=== PATIENT | male | born 1955 | race Caucasian/White ===

== ENCOUNTER 2021-10-20 16:21 | Inpatient (IN) ==
[2021-10-20] MEDS ORDERED: oxyCODONE/APAP 5/325MG TABLET PO PRN (19:14)
[2021-10-20] MEDS ORDERED: ONDANSETRON 4 MG/2 ML VIAL IV PRN (19:14)
[2021-10-20] MEDS ORDERED: ACETAMINOPHEN 325 MG TABLET PO PRN (19:14)
--- NOTE | 2021-10-20 19:26 | Internal Med History&Physical ---
HPI History of Present Illness Patient information: Note initiated : 10/20/21 at 7:17 pm Service Date, if different from initiated Date: [] Patient: Jesse Augustin a 65 y/o M admitted on 10/20/21 for Wound Care. Chief Complaint: [Transferred from outside hospital] Chief complaint: Decubitus pressure ulcers requiring debridement History of present illness: Mr. Augustin is a 65 year old M with a past medical history significant for alcohol abuse, lung mass of unknown etiology, severe protein calorie malnutrition, failure to thrive, and COPD who was transferred from outside hospital for further management and evaluation of his decubitus pressure ulcers. The case was discussed with Dr. Sanches who kindly agreed to accept the patient for surgical debridement. The patient lives alone, has no family or support group. He had a fall at home and was down for nearly 3 days. He states that he has dizzy spells from time to time. He denied any prodromal symptoms. Iit is believed the pressure ulcers may have been caused by the fact that he was down for 72 hours. At baseline he is quite malnourished and frail appearing as his weight is now 103 pounds. He states that he weighed 125 pounds last year. A friend eventually found him down and brought him to the outside ER. Of note, per my discussion with the outside ER physician, he is to be followed up with the refrigeration systems installer for bronchoscopy and biopsy of his lung mass that may be malignant in etiology. At this point, there is been no significant goals of care discussion. The hospitalist service has been asked admit the patient for further management and evaluation of his numerous decubitus pressure ulcers that required debridement. Review of Systems All systems: reviewed and no additional remarkable complaints except as stated Constitutional Constitutional: Present as per HPI EENT Eyes: Present as per HPI; Absent blurry vision Cardiovascular Cardiovascular: Present as per HPI; Absent chest pain, dyspnea, dyspnea on exertion, leg edema or palpatations Respiratory Respiratory: Present as per HPI; Absent cough, dyspnea, dyspnea on exertion, wheezing or stridor Gastrointestinal Gastrointestinal: Present as per HPI; Absent abdominal pain, diarrhea, dysphagia, hematemesis, melena, nausea or vomiting Musculoskeletal Musculoskeletal: Present as per HPI; Absent joint swelling, limited range of motion, muscle cramps, muscle weakness or myalgias Integumentary Integumentary: Present as per HPI; Absent erythema, new lesions, rash or wounds Neurological Neurological: Present as per HPI; Absent abnormal gait, behavioral changes, focal weakness, headache(s), loss of vision, numbness, sensory deficit or syncope Endocrine Endocrine: Absent change in body appearance, fatigue or heat intolerance Hematologic/Lymphatic Hematologic/Lymphatic: Present as per HPI PFSH PFSH All Active Problems (Updated 10/20/21 @ 19:22 by Eleonora Chamberlain MD) Lung mass (Acute) Severe protein-calorie malnutrition (Acute) Decubitus ulcer (Acute) Recurrent falls (Chronic) Muscle weakness (Chronic) Chest wall discomfort (Chronic) Joint pain (Chronic) Diarrhea (Chronic) Cough (Chronic) Early satiety (Chronic) Peripheral vascular disease (Chronic) Poor short term memory (Chronic) Hypomagnesemia (Chronic) Anemia (Chronic) Vitamin D deficiency (Chronic) Homocystinemia (Chronic) History of cardiac murmur (Chronic) PVC's (premature ventricular contractions) (Chronic) Chest pain (Chronic) Alcohol abuse (Chronic) Tachycardia (Chronic) Dizziness of unknown cause (Chronic) Macrocytosis (Chronic) Hypokalemia (Chronic) COPD (chronic obstructive pulmonary disease) (Chronic) Medical History Alcohol abuse Anemia Chest pain Chest wall discomfort COPD (chronic obstructive pulmonary disease) Cough Diarrhea Dizziness of unknown cause Early satiety History of cardiac murmur Homocystinemia Hypokalemia Hypomagnesemia Joint pain Macrocytosis Muscle weakness Peripheral vascular disease Poor short term memory PVC's (premature ventricular contractions) Recurrent falls Tachycardia Vitamin D deficiency Surgical History No pertinent past surgical history Family History Other No pertinent family history Social History smoking status: Current every day smoker tobacco type: cigarettes per day: 30 pack-years: 50 alcohol intake frequency: 2+ drinks per day substance use type: does not use MEDS/ALLERGIES Home Medications and Allergies Home Medications Medication Instructions Recorded Confirmed Type albuterol sulfate 90 mcg/actuation 2 puff inhalation Q4H PRN 08/10/19 05/12/21 History aerosol inhaler tiotropium bromide 2.5 2 puff inhalation QDAY 08/10/19 05/12/21 History mcg/actuation mist for inhalation (Spiriva Respimat) cholecalciferol (vitamin D3) 50 50 mcg PO QDAY 04/29/21 05/12/21 History mcg (2,000 unit) capsule folic acid 1 mg tablet 1 mg PO QDAY 04/29/21 05/12/21 History [id number]-[id number]-[id number] 1 tab PO QDAY 04/29/21 05/12/21 History [Centrum Silver] potassium chloride 20 mEq See Rx Instructions PO .COMPLEX 04/29/21 05/12/21 History tablet,extended release(part/cryst) (Klor-Con M) aspirin 81 mg tablet,delayed 81 mg PO QDAY 05/12/21 05/12/21 History release Allergies Allergy/AdvReac Type Severity Reaction Status Date / Time No Known Drug Allergies Allergy Verified 05/12/21 09:01 EXAM Constitutional General appearance: disheveled and thin Head Head exam: Present atraumatic, normal inspection and normocephalic Eye Eye exam: Present EOMI, normal appearance and PERRL; Absent conjunctival injection ENT ENT exam: Present mucous membranes dry and normal exam Neck Neck exam: Present full ROM; Absent lymphadenopathy Respiratory Respiratory exam: Present normal respiratory exam and CTAB; Absent decreased breath sounds, respiratory distress or wheezes Cardiovascular Cardiovascular exam: Present normal rate and rhythm and RRR; Absent JVD GI/Abdominal GI/Abdominal exam: Present normal bowel sounds and soft; Absent diminished bowel sounds, distended, guarding, mass, rebound or tenderness Expanded Upper Extremity Exam Upper Arm exam: Present ecchymosis Elbow exam: Present ecchymosis Forearm wrist exam: Present ecchymosis Hand wrist exam: Present ecchymosis Neurological Exam Neurological exam: Present alert, CN II-XII intact and oriented X3 Psychiatric Psychiatric exam: Present normal affect and normal mood Skin Skin exam: Present intact and warm; Absent erythema, pallor, petechiae or rash A/P Assessment and plan (1) Recurrent falls: Status: Chronic (2) Muscle weakness: Status: Chronic (3) Alcohol abuse: Status: Chronic (4) COPD (chronic obstructive pulmonary disease): Status: Chronic Qualifiers: COPD type: unspecified COPD Qualified Code(s): J44.9 - Chronic obstructive pulmonary disease, unspecified (5) Decubitus ulcer: Status: Acute (6) Severe protein-calorie malnutrition: Status: Acute (7) Lung mass: Status: Acute Narrative A/P Narrative: #Recurrent falls -2/2 EtOH abuse + sarcopenia + hypovolemia/poor PO intake -PT/OT #Decubitus wounds -2/2 being found down x 72h -Mx per Dr. Sanches #Severe protein calorie malnutrition -Weight is down 20lbs -The patient is high risk for redevelopment of wounds, or ongoign poor wound healing #Lung mass -Serious ongoing goals of care discussion is necessary. Discussed w/ patient today -If this is found to be malignant, he would not be a candidate for therapy given poor ECOG score -Palliative care needs to f/u #EtOH withdrawal -Monitored at the outside hospital, now stable #COPD -Continue home inhalers #FEN -LR 75cc/h, monitor and replete lytes, gen diet #DVT ppx -HSQ #DNR/DNI Time Spent With Patient Time: Total time spent is greater than 50% in coordination of care (as documented) at patient's floor/unit and/or counseling patient: Total time spent with greater than 50% in coordination of care (as documented) at patient's floor/unit and/or counseling patient:: Greater than 70 minutes
[2021-10-20] MEDS: LACTATED RINGERS 1,000 ML IV SCH (21:51)
[2021-10-20] MEDS: SENNOSIDES 1 TABLET PO SCH (22:14)
[2021-10-20] MEDS: DOCUSATE SODIUM 100 MG CAPSULE PO SCH (22:15)
[2021-10-20] MEDS: 0.9 % SODIUM CHLORIDE 10 ML SYRINGE IV SCH (22:15)
[2021-10-21] MEDS: 0.9 % SODIUM CHLORIDE 10 ML SYRINGE IV SCH ×3 (05:22→20:11)
[2021-10-21 06:45] LABS: Basophils # (Auto) 0.07 K/mcL (0.00-0.30); Basophils % (Auto) 0.5 % (0.0-2.0); Eosinophils # (Auto) 0.06 K/mcL (0.00-0.70); Eosinophils % (Auto) 0.5 % (0.0-7.0); Erythrocyte Sedimentation Rate 54 mm/hr (0-20); Hematocrit 28.1 % (40.1-51.0); Lymphocytes # (Auto) 1.58 K/mcL (1.50-4.80); Mean Cell Volume 101.8 fL (80.0-100.0); Mean Platelet Volume 8.7 fL (7.4-10.4); Monocytes % (Auto) 6.1 % (1.0-12.0); Platelet Count 647 K/mcL (140-440); RBC 2.76 M/mcL (4.63-6.08); Red Cell Distribution Width 15.4 % (11.5-14.5); WBC 13.2 K/mcL (4.5-11.0)
[2021-10-21 07:02] LABS: Blood Urea Nitrogen 21 mg/dL (8-23); Calcium 9.3 mg/dL (8.6-10.4); Carbon Dioxide 27 mmol/L (22-30); Chloride 101 mmol/L (96-108); Glomerular Filtration Rate 103; Glucose 89 mg/dL (70-105)
--- NOTE | 2021-10-21 08:45 | Internal Med Progress Note ---
SUBJECTIVE Subjective Patient information: Note initiated : 10/21/21 at 8:43 am Service Date, if different from initiated Date: [] Patient: Jesse Augustin 65 y/o M admitted on 10/20/21 for Wound Care. Chief Complaint: [Found down] Principal diagnosis: Outside hospital transfer for wound mx Interval history: I admitted him last night. He has no active complaints or concerns.The patient was resting comfortably in bed. Constitutional Vitals: Vital Signs Temp Pulse Resp BP Pulse Ox O2 Del Method 97.2 F 78 16 108/68 99 10/21/21 06:47 10/21/21 06:47 10/21/21 06:47 10/21/21 06:47 10/21/21 06:47 10/21/21 06:47 Period Temp Pulse Resp BP Sys/Mendosa Pulse Ox O2 Del Method O2 Flow Rate Last 24 Hr 97.0 F-98.5 F 69-86 16-20 108-128/68-80 97-100 Room Air-Room Air Intake and Output 10/20/21 10/21/21 10/21/21 21:59 05:59 13:59 Intake Total 100 480 Output Total 525 Balance -425 480 Weight 40.506 kg 45.87 kg Patient Weight 10/22/21 05:59 Weight 45.87 kg Intake & Output: Intake & Output 10/20/21 10/21/21 10/21/21 21:59 05:59 13:59 Intake Total 100 480 Output Total 525 Balance -425 480 Weight 40.506 kg 45.87 kg Intake: Oral 100 480 Output: Void Amount 525 Other: Meal Breakfast Percent of Meal Consumed 100% Feeding Ability Independent Urine Appearance Clear Urine Color Bright Yellow Urine Odor Normal Head Head exam: Present atraumatic and normal inspection Eye Eye exam: Present normal appearance ENT ENT exam: Present mucous membranes moist, normal exam and normal external ear exam Neck Neck exam: Present normal inspection Respiratory Respiratory exam: Present normal respiratory exam Cardiovascular Cardiovascular exam: Present normal rate and rhythm GI/Abdominal GI/Abdominal exam: Present normal bowel sounds Back Exam Back exam: Present normal inspection Neurological Exam Neurological exam: Present alert and oriented X3 Skin Skin exam: Present intact and warm OBJ DATA Labs CBC & Chem 7: 10/21/21 06:14 10/21/21 06:14 Labs: Abnormal Lab Results 10/21/21 10/21/21 06:14 06:14 WBC 13.2 H RBC 2.76 L Hgb 9.0 L Hct 28.1 L MCV 101.8 H RDW 15.4 H Plt Count 647 H Immature Gran % (Auto) 0.9 H Neut % (Auto) 80.0 H Lymph % (Auto) 12.0 L Immature Gran # 0.12 H Absolute Neutrophils 10.71 H ESR 54 H Creatinine 0.6 L C-Reactive Protein 6.50 H Meds: Medications Acetaminophen (Acetaminophen 325 Mg Tablet) 650 mg PO Q6HP PRN; Protocol PRN Reason: Per Pain Protocol/Fever > 101 Docusate Sodium (Docusate Sodium 100 Mg Capsule) 100 mg PO BID [facility] Last Admin: 10/20/21 22:15 Dose: 100 mg Enoxaparin Sodium (Enoxaparin 40 Mg/0.4 Ml Syringe) 40 mg SQ DAILY [facility] Lactated Ringer's (Lactated Ringers) 1,000 mls @ 75 mls/hr IV .[id number] [facility] Last Admin: 10/20/21 21:51 Dose: 75 mls/hr Ondansetron HCl (Ondansetron 4 Mg/2 Ml Vial) 4 mg IV Q6HP PRN PRN Reason: Nausea And Vomiting Oxycodone/Acetaminophen (Oxycodone/Apap 5/325mg Tablet) 1 tab PO Q4HP PRN; Protocol PRN Reason: Per Pain Protocol Senna (Sennosides 1 Tablet) 2 tab PO HS [facility] Last Admin: 10/20/21 22:14 Dose: 2 tab Sodium Chloride (0.9 % Sodium Chloride 10 Ml Syringe) 10 ml IV Q8 [facility] Last Admin: 10/21/21 05:22 Dose: Not Given A/P Assessment and plan (1) Recurrent falls: Status: Chronic (2) Muscle weakness: Status: Chronic (3) Alcohol abuse: Status: Chronic (4) COPD (chronic obstructive pulmonary disease): Status: Chronic Qualifiers: COPD type: unspecified COPD Qualified Code(s): J44.9 - Chronic ob structive pulmonary disease, unspecified (5) Decubitus ulcer: Status: Acute (6) Severe protein-calorie malnutrition: Status: Acute (7) Lung mass: Status: Acute Narrative A/P Narrative: #Recurrent falls -2/2 EtOH abuse + sarcopenia + hypovolemia/poor PO intake -PT/OT #Decubitus wounds -2/2 being found down x 72h -Mx per Dr. Sanches #Severe protein calorie malnutrition -Weight is down 20lbs -The patient is high risk for redevelopment of wounds, or ongoign poor wound healing #Lung mass -Serious ongoing goals of care discussion is necessary. Discussed w/ patient today -If this is found to be malignant, he would not be a candidate for therapy given poor ECOG score -Palliative care needs to f/u #EtOH withdrawal -Monitored at the outside hospital, now stable #COPD -Continue home inhalers #FEN -LR 75cc/h, monitor and replete lytes, gen diet #DVT ppx -HSQ #DNR/DNI Time Spent With Patient Time: Total time spent is greater than 50% in coordination of care (as documented) at patient's floor/unit and/or counseling patient: Total time spent with greater than 50% in coordination of care (as documented) at patient's floor/unit and/or counseling patient:: 25 - 35 minutes
[2021-10-21] MEDS ORDERED: PIPERACILLIN SODIUM/TAZOBACTAM 3.375 GM in DEXTROSE 5% IN WATER 50 ML IV SCH (09:00)
[2021-10-21] MEDS: ENOXAPARIN 40 MG/0.4 ML SYRINGE SQ SCH (09:23)
[2021-10-21] MEDS: DOCUSATE SODIUM 100 MG CAPSULE PO SCH ×2 (09:24→20:11)
--- NOTE | 2021-10-21 12:57 | Internal Med Progress Note ---
SUBJECTIVE Subjective Patient information: Note initiated : 10/21/21 at 12:52 pm Service Date, if different from initiated Date: [] Patient: Jesse Augustin a 65 y/o M admitted on 10/20/21 for Wound Care. Chief Complaint: [] Principal diagnosis: Outside hospital transfer for wound mx Interval history: Chief complaint: Decubitus pressure ulcers requiring debridement History of present illness: Mr. Augustin is a 65 year old M with a past medical history significant for alcohol abuse, lung mass of unknown etiology, severe protein calorie malnutrition, failure to thrive, and COPD who was transferred from outside hospital for fu rther management and evaluation of his decubitus pressure ulcers. The case was discussed with Dr. Sanches who kindly agreed to accept the patient for surgical debridement. The patient lives alone, has no family or support group. He had a fall at home and was down for nearly 3 days. He states that he has dizzy spells from time to time. He denied any prodromal symptoms. Iit is believed the pressure ulcers may have been caused by the fact that he was down for 72 hours. At baseline he is quite malnourished and frail appearing as his weight is now 103 pounds. He states that he weighed 125 pounds last year. A friend eventually found him down and brought him to the outside ER. Of note, per my discussion with the outside ER physician, he is to be followed up with the gas pipe layer for bronchoscopy and biopsy of his lung mass that may be malignant in etiology. At this point, there is been no significant goals of care discussion. The hospitalist service has been asked admit the patient for further management and evaluation of his numerous decubitus pressure ulcers that required de bridement. 10/21 I admitted him last night. He has no active complaints or concerns.The patient was resting comfortably in bed. 10/22 Constitutional Vitals: Vital Signs Temp Pulse Resp BP Pulse Ox O2 Del Method 97.3 F 80 14 125/77 99 10/21/21 12:00 10/21/21 12:00 10/21/21 12:00 10/21/21 12:00 10/21/21 12:00 10/21/21 12:00 Period Temp Pulse Resp BP Sys/Mendosa Pulse Ox O2 Del Method O2 Flow Rate Last 24 Hr 97.0 F-98.5 F 69-86 14-20 108-128/68-80 97-100 Room Air-Room Air Intake and Output 10/20/21 10/21/21 10/21/21 21:59 05:59 13:59 Intake Total 100 480 Output Total 525 Balance -425 480 Weight 40.506 kg 45.813 kg Patient Weight 10/22/21 05:59 Weight 45.813 kg Intake & Output: Intake & Output 10/20/21 10/21/21 10/21/21 21:59 05:59 13:59 Intake Total 100 480 Output Total 525 Balance -425 480 Weight 40.506 kg 45.813 kg Intake: Oral 100 480 Output: Void Amount 525 Other: Meal Breakfast Percent of Meal Consumed 100% Feeding Ability Independent Urine Appearance Clear Urine Color Bright Yellow Urine Odor Normal Stool Size Smear Stool Color Brown Exam: General: Alert, Awake, No acute Distress, frail cachectic Eyes/N/T: EOMI, Head/Neck: neck supple, CV: RRR, No murmurs, Pulm: Clear b/l, no wheezing/rhonchi/rales Abd: soft, nontender, +BS x4 Ext: no clubbing/cyanosis/edema Neuro: Alert, no focal deficits, moves all extremities, Skin: warm/dry OBJ DATA Labs CBC & Chem 7: 10/21/21 06:14 10/21/21 06:14 Labs: Abnormal Lab Results 10/21/21 10/21/21 06:14 06:14 WBC 13.2 H RBC 2.76 L Hgb 9.0 L Hct 28.1 L MCV 101.8 H RDW 15.4 H Plt Count 647 H Immature Gran % (Auto) 0.9 H Neut % (Auto) 80.0 H Lymph % (Auto) 12.0 L Immature Gran # 0.12 H Absolute Neutrophils 10.71 H ESR 54 H Creatinine 0.6 L C-Reactive Protein 6.50 H Meds: Medications Acetaminophen (Acetaminophen 325 Mg Tablet) 650 mg PO Q6HP PRN; Protocol PRN Reason: Per Pain Protocol/Fever > 101 Collagenase (Collagenase Top Oint Tube 30gm) 1 dose TOPICAL DAILY [facility] Docusate Sodium (Docusate Sodium 100 Mg Capsule) 100 mg PO BID [facility] Last Admin: 10/21/21 09:24 Dose: 100 mg Enoxaparin Sodium (Enoxaparin 40 Mg/0.4 Ml Syringe) 40 mg SQ DAILY [facility] Last Admin: 10/21/21 09:23 Dose: 40 mg Lactated Ringer's (Lactated Ringers) 1,000 mls @ 75 mls/hr IV .[id number] [facility] Last Admin: 10/20/21 21:51 Dose: 75 mls/hr Piperacillin Sod/Tazobactam (Sod 3.375 gm/ Dextrose) 50 mls @ 100 mls/hr IV Q6H [facility] Ondansetron HCl (Ondansetron 4 Mg/2 Ml Vial) 4 mg IV Q6HP PRN PRN Reason: Nausea And Vomiting Oxycodone/Acetaminophen (Oxycodone/Apap 5/325mg Tablet) 1 tab PO Q4HP PRN; Protocol PRN Reason: Per Pain Protocol Senna (Sennosides 1 Tablet) 2 tab PO HS [facility] Last Admin: 10/20/21 22:14 Dose: 2 tab Sodium Chloride (0.9 % Sodium Chloride 10 Ml Syringe) 10 ml IV Q8 [facility] Last Admin: 10/21/21 05:22 Dose: Not Given A/P Narrative A/P Narrative: A: #Recurrent falls: -2/2 EtOH abuse + sarcopenia + hypovolemia/poor PO intake #Severe protein calorie malnutrition: Muscle/fat loss/poor functional status -Weight is down 20lbs -The patient is high risk for redevelopment of wounds, or ongoign poor wound healing #Decubitus wounds, infection: -2/2 being found down x 72h #Severe protein calorie malnutrition #EtOH withdrawal -Monitored at the outside hospital, now stable #Lung mass: -Serious ongoing goals of care discussion is necessary. Discussed w/ patient today -If this is found to be malignant, he would not be a candidate for therapy given poor ECOG score -Was supposed to have further work-up with Dr. Barksdale #Tobacco abuse: #COPD ( ): #Anemia, chronic: P: -Dr. Sanches/wound care -Dietary consult -PT/OT -goals of care/palliative care needs regarding lung mass if malignant -IVF -abx -Smoking cessation counseling > 3 minutes -Follow-up with Dr. Apolonia umana -ppx: ovenox DNR/DNI Time Spent With Patient Time: Total time spent is greater than 50% in coordination of care (as documented) at patient's floor/unit and/or counseling patient:
--- NOTE | 2021-10-21 14:05 | General Surgery Consult Note ---
HPI Data of Consult Consult date: 10/21/21 Requesting physician: Eleonora Chamberlain Primary Care Provider: Taj Rankin Family Provider: Referred from [facility] by Dr. Violeta Bejarano. Reg: Wound care for complex trauma wounds and pressure ulcers, Buttocks, back and posterior thighs. Consult Narrative Patient Information: Note initiated : 10/21/21 at 2:01 pm Service Date, if different from initiated Date: [] Patient: Jesse Augustin 65 y/o M admitted on 10/20/21 for Wound Care. Chief Complaint: [] Chief complaint: Complex wounds s/p non syncopal fall in bath tub. Was down for over 3 days. Reason for consult: Wound care and further coordianted management of comorbidities. cc:: CC: Eleonora Chamberlain MD Review of Systems Review of systems: Everyday smoker. Daily alcohol. Lives by himself. Constitutional Constitutional: Present as per HPI, frequent falls, weakness and weight loss (Not intentional) Respiratory Respiratory: Present other (H/o Non syncopal dizzy spells.) Gastrointestinal Gastrointestinal: Present other (Soft guiac positive stools. Denies pain, N/V. Tends to be constipated.) Musculoskeletal Musculoskeletal: Present muscle weakness and other Additional comments: Unsteady on feet. Falls. Integumentary Integumentary: Present wounds (DTI Stage 5 Discrete back, Back of both lower thighs Stage 2, LEFT buttock and perianal Stage 4. Proximaity to anal orifice. Fecal contamination. ) Neurological Neurological: Present other (NON focal.) Hematologic/Lymphatic Hematologic/Lymphatic: Present other (Malnourished. PCM.) PFSH PFSH All Active Problems Lung mass (Acute) Severe protein-calorie malnutrition (Acute) Decubitus ulcer (Acute) Recurrent falls (Chronic) Muscle weakness (Chronic) Chest wall discomfort (Chronic) Joint pain (Chronic) Diarrhea (Chronic) Cough (Chronic) Early satiety (Chronic) Peripheral vascular disease (Chronic) Poor short term memory (Chronic) Hypomagnesemia (Chronic) Anemia (Chronic) Vitamin D deficiency (Chronic) Homocystinemia (Chronic) History of cardiac murmur (Chronic) PVC's (premature ventricular contractions) (Chronic) Chest pain (Chronic) Alcohol abuse (Chronic) Tachycardia (Chronic) Dizziness of unknown cause (Chronic) Macrocytosis (Chronic) Hypokalemia (Chronic) COPD (chronic obstructive pulmonary disease) (Chronic) Medical History Alcohol abuse Anemia Chest pain Chest wall discomfort COPD (chronic obstructive pulmonary disease) Cough Diarrhea Dizziness of unknown cause Early satiety History of cardiac murmur Homocystinemia Hypokalemia Hypomagnesemia Joint pain Macrocytosis Muscle weakness Peripheral vascular disease Poor short term memory PVC's (premature ventricular contractions) Recurrent falls Tachycardia Vitamin D deficiency Surgical History No pertinent past surgical history Family History Other No pertinent family history Social History smoking status: Current every day smoker tobacco type: cigarettes per day: 30 pack-years: 50 alcohol intake frequency: 2+ drinks per day substance use type: does not use MEDS/ALLERGIES Home Medications and Allergies Home Medications Medication Instructions Recorded Confirmed Type albuterol sulfate 90 mcg/actuation 2 puff inhalation Q4H PRN 08/10/19 10/20/21 History aerosol inhaler Shortness Of Breath tiotropium bromide 2.5 2 puff inhalation QDAY 08/10/19 10/20/21 History mcg/actuation mist for inhalation (Spiriva Respimat) cholecalciferol (vitamin D3) 50 50 mcg PO QDAY 04/29/21 10/20/21 History mcg (2,000 unit) capsule folic acid 1 mg tablet 1 mg PO QDAY 04/29/21 10/20/21 History mszktdajaumj-odqrlwrw-rrexyl 1 tab PO QDAY 04/29/21 10/20/21 History [Centrum Silver] potassium chloride 20 mEq See Rx Instructions PO .COMPLEX 04/29/21 10/20/21 History tablet,extended release(part/cryst) (Klor-Con M) aspirin 81 mg tablet,delayed 81 mg PO QDAY 05/12/21 10/20/21 History release Allergies Allergy/AdvReac Type Severity Reaction Status Date / Time No Known Drug Allergies Allergy Verified 05/12/21 09:01 Physical Examination Vital Signs Vital signs: Temp Pulse Resp BP Pulse Ox O2 Del Method 97.3 F 80 14 125/77 99 10/21/21 12:00 10/21/21 12:00 10/21/21 12:00 10/21/21 12:00 10/21/21 12:00 10/21/21 12:00 General physical appearance General physical exam: no distress, cachectic and chronically ill Eyes Eye exam: PERRL and normal ocular movement ENT ENT exam: normal pinna, normal mucosa and no congestion Head Head exam IM: Present atraumatic and normocephalic Neck Neck exam: trachea midline and no venous distension Cardiovascular Cardiovascular exam IM: Present normal rate and rhythm Respiratory Respiratory exam: normal expansion, normal respiratory effort and other (H/O Lung mass. Suspicious of malignancy. Seen by Pulmonology clinc at [facility].) Abdomen Abdomen: Present soft, non tender and bowel sounds Genitourinary Genitourinary (Male): Present normal penis with no external lesions Rectum Rectum: Present other (Rectal exam NOT done. Dark black stool in proximity of wound near anal orifice. ) Integumentary Integumentary: Present other (Stage 2 ulcers posterior lower thighs bilateral, DTI well circumscribed over bony prominences mid thoracic and lumbar spine region Stage 5. LEFT buttock Stage 4 wound SEE details in nurses notes and clinical photographs in chart.) Neurologic Neurologic: Present normal coordination and other (Non localizing and Non focal neurological examination.) Musculoskeletal Musculoskeletal: Present normal posture and other (Did NOT see patient standing up or ambulate.) Psychiatric Psychiatric: Present oriented to time, oriented to person, oriented to place, speech is normal and memory intact Additional Findings Additional exam: NEED to know more about support services. Family / friends. Patient reluctant to talk. Results Labs Result diagrams: 10/21/21 06:14 10/21/21 06:14 Labs: Abnormal lab results 10/21/21 10/21/21 Range/Units 06:14 06:14 WBC 13.2 H (4.5-11.0) K/mcL RBC 2.76 L (4.63-6.08) M/mcL Hgb 9.0 L (13.7-17.5) g/dL Hct 28.1 L (40.1-51.0) % MCV 101.8 H (80.0-100.0) fL RDW 15.4 H (11.5-14.5) % Plt Count 647 H (140-440) K/mcL Immature Gran % (Auto) 0.9 H (0.0-0.5) % Neut % (Auto) 80.0 H (38.0-78.0) % Lymph % (Auto) 12.0 L (15.5-49.0) % Immature Gran # 0.12 H (0.00-0.05) K/mcl Absolute Neutrophils 10.71 H (1.80-8.00) K/mcL ESR 54 H (0-20) mm/hr Creatinine 0.6 L (0.7-1.2) mg/dL C-Reactive Protein 6.50 H (0.03-0.80) mg/dL Diabetes panel 10/21/21 Range/Units 06:14 Sodium 136 (133-145) mmol/L Potassium 4.4 (3.3-5.1) mmol/L Chloride 101 (96-108) mmol/L Carbon Dioxide 27 (22-30) mmol/L BUN 21 (8-23) mg/dL Creatinine 0.6 L (0.7-1.2) mg/dL Glucose 89 (70-105) mg/dL Calcium 9.3 (8.6-10.4) mg/dL Calcium panel 10/21/21 Range/Units 06:14 Calcium 9.3 (8.6-10.4) mg/dL Pituitary panel 10/21/21 Range/Units 06:14 Sodium 136 (133-145) mmol/L Potassium 4.4 (3.3-5.1) mmol/L Chloride 101 (96-108) mmol/L Carbon Dioxide 27 (22-30) mmol/L BUN 21 (8-23) mg/dL Creatinine 0.6 L (0.7-1.2) mg/dL Glucose 89 (70-105) mg/dL Calcium 9.3 (8.6-10.4) mg/dL Adrenal panel 10/21/21 Range/Units 06:14 Sodium 136 (133-145) mmol/L Potassium 4.4 (3.3-5.1) mmol/L Chloride 101 (96-108) mmol/L Carbon Dioxide 27 (22-30) mmol/L BUN 21 (8-23) mg/dL Creatinine 0.6 L (0.7-1.2) mg/dL Glucose 89 (70-105) mg/dL Calcium 9.3 (8.6-10.4) mg/dL All other labs normal. A/P Narrative A/P Narrative: Assessment: Complex wounds. Multiple comorbidities. Left buttock, spinous process back thoracic and lumbar regions. Comorbidities: PCM Malnourished ETOH and Daily Smoker Lung mass. COPD Suspected pulmonary malignancy Constipation. Dark black stools. Plan: Wound care as ordered. Initial Dietary consult and Physical Therapy. Lab tests as ordered. cbc,cmp,crp, A1C, prealbumin, tsh. Will consult . General Surgeon. Re; recommendation about GI scopes AND initial debridement. Patient may need fecal diversion in future. Will follow patient along with wound care nurses. Time Spent With Patient Time: Total time spent is greater than 50% in coordination of care (as documented) at patient's floor/unit and/or counseling patient:
[2021-10-21] MEDS: MULTIVIT,THER IRON,CA,FA & MIN 1 TABLET PO SCH (14:39)
[2021-10-21] MEDS: PIPERACILLIN SODIUM/TAZOBACTAM 3.375 GM in DEXTROSE 5% IN WATER 50 ML IV SCH ×2 (14:39→17:39)
[2021-10-21] MEDS: THIAMINE 100 MG TABLET PO SCH (14:39)
[2021-10-21] MEDS: LACTATED RINGERS 1,000 ML IV SCH (14:40)
[2021-10-21] MEDS: FOLIC ACID 1 MG TABLET PO SCH (15:25)
[2021-10-21] MEDS: SENNOSIDES 1 TABLET PO SCH (20:11)
[2021-10-22] MEDS: PIPERACILLIN SODIUM/TAZOBACTAM 3.375 GM in DEXTROSE 5% IN WATER 50 ML IV SCH ×5 (00:16→23:39)
[2021-10-22] MEDS: 0.9 % SODIUM CHLORIDE 10 ML SYRINGE IV SCH ×3 (05:35→21:00)
[2021-10-22 06:02] LABS: Basophils # (Auto) 0.08 K/mcL (0.00-0.30); Basophils % (Auto) 0.6 % (0.0-2.0); Eosinophils # (Auto) 0.07 K/mcL (0.00-0.70); Eosinophils % (Auto) 0.6 % (0.0-7.0); Hematocrit 27.5 % (40.1-51.0); Hemoglobin 8.8 g/dL (13.7-17.5); Lymphocytes # (Auto) 1.49 K/mcL (1.50-4.80); Lymphocytes % (Auto) 11.8 % (15.5-49.0); Mean Cell Volume 106.2 fL (80.0-100.0); Mean Platelet Volume 8.7 fL (7.4-10.4); Monocytes # (Auto) 0.89 K/mcL (0.10-0.90); Platelet Count 591 K/mcL (140-440); RBC 2.59 M/mcL (4.63-6.08); Red Cell Distribution Width 15.1 % (11.5-14.5); WBC 12.7 K/mcL (4.5-11.0)
[2021-10-22 06:54] LABS: Thyroid Stimulating Hormone 4.29 uIU/mL (0.27-5.01)
[2021-10-22 06:55] LABS: ALT/SGPT 40 U/L (<40); AST/SGOT 35 U/L (<40); Alkaline Phosphatase 95 U/L (39-117); Bilirubin,Direct < 0.2 mg/dL (0-0.3); Bilirubin,Total 0.3 mg/dL (0.1-1.0); Blood Urea Nitrogen 15 mg/dL (8-23); Carbon Dioxide 25 mmol/L (22-30); Chloride 101 mmol/L (96-108); Glomerular Filtration Rate 103; Glucose 91 mg/dL (70-105); Lactate Dehydrogenase 257 U/L (135-225); Phosphorous 3.8 mg/dL (2.5-4.5); Triglycerides 57 mg/dL (<150); Uric Acid 3.5 mg/dL (2.5-8.0)
[2021-10-22 07:04] LABS: Prealbumin 12.6 mg/dL (20.0-40.0)
--- NOTE | 2021-10-22 07:49 | Internal Med Progress Note ---
SUBJECTIVE Subjective Patient information: Note initiated : 10/22/21 at 7:46 am Service Date, if different from initiated Date: [] Patient: Jesse Augustin a 65 y/o M admitted on 10/20/21 for Wound Care. Chief Complaint: [] Principal diagnosis: Outside hospital transfer for wound mx Interval history: Chief complaint: Decubitus pressure ulcers requiring debridement History of present illness: Mr. Augustin is a 65 year old M with a past medical history significant for alcohol abuse, lung mass of unknown etiology, severe protein calorie malnutrition, failure to thrive, and COPD who was transferred from outside hospital for fur ther management and evaluation of his decubitus pressure ulcers. The case was discussed with Dr. Sanches who kindly agreed to accept the patient for surgical debridement. The patient lives alone, has no family or support group. He had a fall at home and was down for nearly 3 days. He states that he has dizzy spells from time to time. He denied any prodromal symptoms. Iit is believed the pressure ulcers may have been caused by the fact that he was down for 72 hours. At baseline he is quite malnourished and frail appearing as his weight is now 103 pounds. He states that he weighed 125 pounds last year. A friend eventually found him down and brought him to the outside ER. Of note, per my discussion with the outside ER physician, he is to be followed up with the director of integrated marketing for bronchoscopy and biopsy of his lung mass that may be malignant in etiology. At this point, there is been no significant goals of care discussion. The hospitalist service has been asked admit the patient for further management and evaluation of his numerous decubitus pressure ulcers that required juan ridement. 10/21 I admitted him last night. He has no active complaints or concerns.The patient was resting comfortably in bed. 10/22 No new complaints. Patient ate most of his breakfast this morning. Continue wound care treatment. Review of Systems: denies headache/fever/chills/nausea/vomiting/chest or abdominal pain/cough/dyspnea/diarrhea. Otherwise see above. Constitutional Vitals: Vital Signs Temp Pulse Resp BP Pulse Ox O2 Del Method 98.2 F 71 16 93/58 99 10/22/21 07:33 10/22/21 07:33 10/22/21 07:33 10/22/21 07:33 10/22/21 07:33 10/22/21 07:33 Period Temp Pulse Resp BP Sys/Mendosa Pulse Ox O2 Del Method O2 Flow Rate Last 24 Hr 97.1 F-98.2 F 67-95 14-20 93-125/58-77 98-99 Room Air-Room Air Intake and Output 10/21/21 10/22/21 10/22/21 21:59 05:59 13:59 Intake Total 780 1605 50 Output Total 200 500 100 Balance 580 1105 -50 Weight 43.998 kg Intake & Output: Intake & Output 10/21/21 10/22/21 10/22/21 21:59 05:59 13:59 Intake Total 780 1605 50 Output Total 200 500 100 Balance 580 1105 -50 Weight 43.998 kg Intake: IV 100 775 50 Lactated Ringers 1,000 ml @ 75 725 mls/hr IV .[id number] WINTER Rx#: [id number] Zosyn 3.375 gm In Dextrose 5% 100 50 50 in Water 50 ml @ 100 mls/hr IV Q6H WINTER Rx#:[id number] Oral 680 830 Output: Void Amount 200 500 100 Other: Meal Dinner Percent of Meal Consumed 75% Feeding Ability Independent Urine Appearance Clear Clear Clear Urine Color Dark Yellow Bright Yellow Bright Yellow Urine Odor Normal Stool Size Large Stool Color Black Stool Consistency Soft # Bowel Movements 1 # of times incontinent of 1 Bowels Exam: General: Alert, Awake, No acute Distress, frail cachectic Eyes/N/T: EOMI, Head/Neck: neck supple, CV: RRR, No murmurs, Pulm: Clear b/l, no wheezing/rhonchi/rales Abd: soft, nontender, +BS x4 Ext: no clubbing/cyanosis/edema. pressure wounds lower thighs and left buttock Neuro: Alert, no focal deficits, moves all extremities, Skin: warm/dry OBJ DATA Labs CBC & Chem 7: 10/22/21 05:12 10/22/21 05:12 Labs: Abnormal Lab Results 10/22/21 10/22/21 10/22/21 05:12 05:12 05:12 WBC 12.7 H RBC 2.59 L Hgb 8.8 L Hct 27.5 L MCV 106.2 H RDW 15.1 H Plt Count 591 H Immature Gran % (Auto) 1.0 H Neut % (Auto) 79.0 H Lymph % (Auto) 11.8 L Lymph # (Auto) 1.49 L Immature Gran # 0.13 H Absolute Neutrophils 10.13 H ESR Creatinine 0.6 L ALT 40 H Lactate Dehydrogenase 257 H C-Reactive Protein 5.00 H Albumin 3.0 L Prealbumin 12.6 L 10/21/21 10/21/21 06:14 06:14 WBC 13.2 H RBC 2.76 L Hgb 9.0 L Hct 28.1 L MCV 101.8 H RDW 15.4 H Plt Count 647 H Immature Gran % (Auto) 0.9 H Neut % (Auto) 80.0 H Lymph % (Auto) 12.0 L Lymph # (Auto) Immature Gran # 0.12 H Absolute Neutrophils 10.71 H ESR 54 H Creatinine 0.6 L ALT Lactate Dehydrogenase C-Reactive Protein 6.50 H Albumin Prealbumin Meds: Medications Acetaminophen (Acetaminophen 325 Mg Tablet) 650 mg PO Q6HP PRN; Protocol PRN Reason: Per Pain Protocol/Fever > 101 Collagenase (Collagenase Top Oint Tube 30gm) 1 dose TOPICAL DAILY [facility] Docusate Sodium (Docusate Sodium 100 Mg Capsule) 100 mg PO BID [facility] Last Admin: 10/21/21 20:11 Dose: 100 mg Enoxaparin Sodium (Enoxaparin 40 Mg/0.4 Ml Syringe) 40 mg SQ DAILY [facility] Last Admin: 10/21/21 09:23 Dose: 40 mg Folic Acid (Folic Acid 1 Mg Tablet) 1 mg PO DAILY [facility] Last Admin: 10/21/21 15:25 Dose: Not Given Piperacillin Sod/Tazobactam (Sod 3.375 gm/ Dextrose) 50 mls @ 100 mls/hr IV Q6H [facility] Last Infusion: 10/22/21 06:05 Dose: Infused Iron Carb/Multivit/Vacuum Pan Tender/Folic Acid (Multivit,Ther Iron,Ca,Fa & Min 1 Tablet) 1 tab PO DAILY [facility] Last Admin: 10/21/21 14:39 Dose: 1 tab Ondansetron HCl (Ondansetron 4 Mg/2 Ml Vial) 4 mg IV Q6HP PRN PRN Reason: Nausea And Vomiting Oxycodone/Acetaminophen (Oxycodone/Apap 5/325mg Tablet) 1 tab PO Q4HP PRN; Protocol PRN Reason: Per Pain Protocol Senna (Sennosides 1 Tablet) 2 tab PO HS [facility] Last Admin: 10/21/21 20:11 Dose: 2 tab Sodium Chloride (0.9 % Sodium Chloride 10 Ml Syringe) 10 ml IV Q8 [facility] Last Admin: 10/22/21 05:35 Dose: 10 ml Thiamine HCl (Thiamine 100 Mg Tablet) 100 mg PO DAILY [facility] Last Admin: 10/21/21 14:39 Dose: 100 mg A/P Narrative A/P Narrative: A: #Recurrent falls: 2/2 EtOH abuse + sarcopenia + hypovolemia/poor PO intake #Severe protein calorie malnutrition: Muscle &fat loss/poor functional status -Weight is down 20lbs, prealbumin low -The patient is high risk for redevelopment of wounds, or ongoing poor wound healing #Decubitus wounds, infection: 2/ being found down x 72h #Severe protein calorie malnutrition #EtOH withdrawal -Monitored at the outside hospital, now stable #Lung mass: -Serious ongoing goals of care discussion is necessary. Discussed w/ patient today -If this is found to be malignant, he would not be a candidate for therapy given poor ECOG score -Was supposed to have further work-up with Dr. Barksdale #Tobacco abuse: #COPD (not on home O2): #Anemia, chronic: P: -Dr. Sanches/wound care -Dietary consult -PT/OT -goals of care/palliative care needs regarding lung mass if malignant -IVF d/c -abx -Smoking cessation counseling > 3 minutes -Follow-up with Dr. Barksdale regardin mass -ppx: ovenox DNR/DNI Time Spent With Patient Time: Total time spent is greater than 50% in coordination of care (as documented) at patient's floor/unit and/or counseling patient: Total time spent with greater than 50% in coordination of care (as documented) at patient's floor/unit and/or counseling patient:: 25 - 35 minutes
[2021-10-22] MEDS: MULTIVIT,THER IRON,CA,FA & MIN 1 TABLET PO SCH (10:52)
[2021-10-22] MEDS: THIAMINE 100 MG TABLET PO SCH (10:52)
[2021-10-22] MEDS: FOLIC ACID 1 MG TABLET PO SCH (10:52)
[2021-10-22] MEDS: DOCUSATE SODIUM 100 MG CAPSULE PO SCH ×2 (10:53→19:46)
[2021-10-22] MEDS: COLLAGENASE TOP OINT TUBE 30GM TOPICAL SCH (11:19)
--- NOTE | 2021-10-22 13:16 | General Surgery Progress Note ---
SUBJECTIVE Subjective Patient information: Note initiated : 10/22/21 at 1:13 pm Service Date, if different from initiated Date: [] Patient: Jesse Augustin 65 y/o M admitted on 10/20/21 for Wound Care. Chief Complaint: [] Principal diagnosis: Outside hospital transfer for wound mx Additional PMFSH (Level 3 Only): Patient seen along with Justus Nixon RN. Resting comfortably. S/B/ Physical therapy. Constitutional Vitals: Vital Signs Temp Pulse Resp BP Pulse Ox O2 Del Method 98.3 F 83 15 103/65 96 10/22/21 11:46 10/22/21 11:46 10/22/21 11:46 10/22/21 11:46 10/22/21 11:46 10/22/21 11:46 Period Temp Pulse Resp BP Sys/Mendosa Pulse Ox O2 Del Method O2 Flow Rate Last 24 Hr 97.1 F-98.3 F 67-95 15-20 93-118/58-75 96-99 Room Air-Room Air Intake and Output 10/21/21 10/22/21 10/22/21 21:59 05:59 13:59 Intake Total 780 1605 1135 Output Total 200 500 450 Balance 580 1105 685 Weight 97 lb Intake & Output: Intake & Output 10/21/21 10/22/21 10/22/21 21:59 05:59 13:59 Intake Total 780 1605 1135 Output Total 200 500 450 Balance 580 1105 685 Weight 97 lb Intake: IV 100 775 775 Lactated Ringers 1,000 ml @ 75 725 725 mls/hr IV .[id number] [facility] Rx#: [id number] Zosyn 3.375 gm In Dextrose 5% 100 50 50 in Water 50 ml @ 100 mls/hr IV Q6H [facility] Rx#:[id number] Oral 680 830 360 Output: Void Amount 200 500 450 Other: Meal Dinner Breakfast Percent of Meal Consumed 75% 100% Feeding Ability Independent Independent Urine Appearance Clear Clear Clear Urine Color Dark Yellow Bright Yellow Bright Yellow Urine Odor Normal Stool Size Large Stool Color Black Stool Consistency Soft # Bowel Movements 1 # of times incontinent of 1 Bowels Exam: No changes KEIKO and sound status. Local wound care is ongoing. Continues to be on IV antibiotics. Reviewed patient's situation with Dr. Jerry, Hospitalist AND Sarah RN Nurse I/C on Med Surg. Reviewed patient's history notes. Patient had a Chest CT in past. Right mid lung mass. He failed f/u with Dr. Barksdale for w/u BX of lung mass. He now presents with other new problems since then. A/P Narrative A/P Narrative: Assessment: Patient with lung mass. Suspicious of malignancy. NEEDS repeat CT scan and CT guided biopsy . LGIB Black stools. Cachexia and unintentional weight loss . H/O Falls and subsequent wounds NOT healing. Malnutrition. Prealbumin is severely decreased. Given this scenario, Patient needs an expedited work up. Tissue diagnosis to r/o malignancy to facilitate his care. Dr. Jerry, Hospitalist updated. Continuation of wound care and nutrition repletion. Plan of Treatment: Plan: I have discussed this situation with Dr. Barksdale. Vp Cardiovascular Service Line AND with Dr. Neri Thomas. General surgeon. Please have CM, SW to coordinate further ongoing care. Wound care to continue. Will follow patient during his hospitalization. Time Spent With Patient Time: Total time spent is greater than 50% in coordination of care (as documented) at patient's floor/unit and/or counseling patient:
[2021-10-22] MEDS: ENOXAPARIN 40 MG/0.4 ML SYRINGE SQ SCH (16:04)
[2021-10-22] MEDS ORDERED: IOPAMIDOL 100 ML BOTTLE IV ONE (16:10)
--- NOTE | 2021-10-22 18:31 | Cat Scan Report ---
CLINICAL INFORMATION: Evaluate pulmonary mass COMPARISON: Chest CT 05/22/2021. Plain films 06/12/2019 and 10/08/2021 TECHNIQUE: 80 cc of Isovue-370 were injected intravenously, and 25 seconds later, 0.625 mm helical slices were obtained from the lung apices through the bases. Following reconstruction, 2.5 mm sagittal, coronal and axial reformations were processed and reviewed at lung, mediastinal and bone windows. 7 mm axial MIPS were also obtained to optimize pulmonary nodule detection. The exam was performed using radiation dose optimization techniques including, but not limited to, automated exposure control, adjustment of the mA and/or kV according to patient size and use of iterative reconstruction technique. FINDINGS: Pulmonary parenchymal windows show moderate centrilobular emphysema featuring chronic bronchitis with elevated lung volumes wall thickening-dilatation of the bronchi. Scattered small bullae are seen throughout both lungs-predominantly in the upper lobes. There is scattered scarring in the periphery of both mid and lower lungs. The 3 x 2.1 cm well-circumscribed nodule in the inferior right lower lobe, adjacent to major fissure, is unchanged from the 05/22/2021 comparison exam over five months ago. 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 There are no new or enlarging nodules to support malignancy. Focal pleural calcification seen in the right diaphragmatic pleura. No effusions. The mediastinal windows show the heart is normal in size with extraordinarily heavy calcific plaque in the left main, proximal LAD, and circumflex coronary arteries. The pulmonary arteries are well-opacified and normal diameter colon no evidence of pulmonary embolus. The thoracic aorta is normal diameter with extraordinarily heavy calcific plaque focally in the descending segment. There is no adenopathy in the mediastinal, hilar or axillary region. The esophagus is grossly normal. The thyroid is unremarkable. Bone windows show mild chronic wedging involving a lower thoracic vertebral bodies with endplate irregularity compatible mild Scheuermann's disease. No other osseous abnormalities. Soft tissues are normal. Images through the superior abdomen show very heavy plaque in the proximal left renal artery suspect significant stenoses. IMPRESSION: 1. 3 cm well-circumscribed nodule in the inferior right lower lobe-stable since the CT five months ago. 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 No evidence of pulmonary malignancy 2. Moderate centrilobular emphysema-stable. No acute disease 3. Extraordinarily heavy calcific plaque in the left main, proximal LAD and circumflex coronary arteries. Occlusive or subocclusive coronary disease is highly suspected: consider cardiology referral for stress testing or, even, catheterization. 4. High-grade stenosis proximal left renal artery. Interpreted and Authenticated by: Liu Martin 10/22/21
[2021-10-22] MEDS: SENNOSIDES 1 TABLET PO SCH (19:46)
--- NOTE | 2021-10-22 22:46 | General Surgery Consult Note ---
HPI Data of Consult Patient: new to practice Consult date: 10/22/21 Requesting physician: Ángel Sanches Primary Care Provider: Taj Rankin Consult Narrative Patient Information: Note initiated : 10/22/21 at 10:37 pm Service Date, if different from initiated Date: [] Patient: Jesse Augustin 65 y/o M admitted on 10/20/21 for Wound Care. Chief Complaint: [Pressure Ulcerations] Mr Augustin is seen in consultation after the recent development of pressure ulcerations after being found down presumably secondary to pressure Ethanol Intoxication. He was transferred to [facility] for wound care with possible need for Operative Debridement. The dominant ulceration involves the Left Medial Gluteal Region. He is not septic and does not appear to have active infection. There are several other smaller wounds including on the back and the Right Gluteal region. He is ambulatory and lives independently. He is fully continent as well. He is not on oral anticoagulants. Chief complaint: Pressure Ulcerations Reason for consult: Pressure Ulcerations cc:: CC: Eleonora Chamberlain MD Review of Systems All systems: reviewed and no additional remarkable complaints except as stated Review of systems: Constitutional Constitutional: Present as per HPI EENT Eyes: Present as per HPI; Absent blurry vision Cardiovascular Cardiovascular: Present as per HPI; Absent chest pain, dyspnea, dyspnea on e xertion, leg edema or palpatations Respiratory Respiratory: Present as per HPI; Absent cough, dyspnea, dyspnea on exertion, wheezing or stridor Gastrointestinal Gastrointestinal: Present as per HPI; Absent abdominal pain, diarrhea, dysphagia, hematemesis, melena, nausea or vomiting Musculoskeletal Musculoskeletal: Present as per HPI; Absent joint swelling, limited range of motion, muscle cramps, muscle weakness or myalgias Integumentary Integumentary: Present as per HPI; Absent erythema, new lesions, rash or wounds Neurological Neurological: Present as per HPI; Absent abnormal gait, behavioral changes, focal weakness, headache(s), loss of vision, numbness, sensory deficit or syncope Endocrine Endocrine: Absent change in body appearance, fatigue or heat intolerance Hematologic/Lymphatic Hematologic/Lymphatic: Present as per HPI PFSH PFSH All Active Problems Lung mass (Acute) Severe protein-calorie malnutrition (Acute) Decubitus ulcer (Acute) Recurrent falls (Chronic) Muscle weakness (Chronic) Chest wall discomfort (Chronic) Joint pain (Chronic) Diarrhea (Chronic) Cough (Chronic) Early satiety (Chronic) Peripheral vascular disease (Chronic) Poor short term memory (Chronic) Hypomagnesemia (Chronic) Anemia (Chronic) Vitamin D deficiency (Chronic) Homocystinemia (Chronic) History of cardiac murmur (Chronic) PVC's (premature ventricular contractions) (Chronic) Chest pain (Chronic) Alcohol abuse (Chronic) Tachycardia (Chronic) Dizziness of unknown cause (Chronic) Macrocytosis (Chronic) Hypokalemia (Chronic) COPD (chronic obstructive pulmonary disease) (Chronic) Medical History Alcohol abuse Anemia Chest pain Chest wall discomfort COPD (chronic obstructive pulmonary disease) Cough Diarrhea Dizziness of unknown cause Early satiety History of cardiac murmur Homocystinemia Hypokalemia Hypomagnesemia Joint pain Macrocytosis Muscle weakness Peripheral vascular disease Poor short term memory PVC's (premature ventricular contractions) Recurrent falls Tachycardia Vitamin D deficiency Surgical History No pertinent past surgical history Family History Other No pertinent family history Social History smoking status: Current every day smoker tobacco type: cigarettes per day: 30 pack-years: 50 alcohol intake frequency: 2+ drinks per day substance use type: does not use MEDS/ALLERGIES Home Medications and Allergies Home Medications Medication Instructions Recorded Confirmed Type albuterol sulfate 90 mcg/actuation 2 puff inhalation Q4H PRN 08/10/19 10/20/21 History aerosol inhaler Shortness Of Breath tiotropium bromide 2.5 2 puff inhalation QDAY 08/10/19 10/20/21 History mcg/actuation mist for inhalation (Spiriva Respimat) cholecalciferol (vitamin D3) 50 50 mcg PO QDAY 04/29/21 10/20/21 History mcg (2,000 unit) capsule folic acid 1 mg tablet 1 mg PO QDAY 04/29/21 10/20/21 History [id number] 1 tab PO QDAY 04/29/21 10/20/21 History [Centrum Silver] potassium chloride 20 mEq See Rx Instructions PO .COMPLEX 04/29/21 10/20/21 History tablet,extended release(part/cryst) (Klor-Con M) aspirin 81 mg tablet,delayed 81 mg PO QDAY 05/12/21 10/20/21 History release Allergies Allergy/AdvReac Type Severity Reaction Status Date / Time No Known Drug Allergies Allergy Verified 05/12/21 09:01 Physical Examination Vital Signs Vital signs: Temp Pulse Resp BP Pulse Ox O2 Del Method 98.5 F 90 16 98/67 97 10/22/21 19:38 10/22/21 19:38 10/22/21 19:38 10/22/21 19:38 10/22/21 19:38 10/22/21 19:38 General physical appearance General physical exam: other (awake and fully conversant ) Integumentary Integumentary: Present other (there is a roughly 10 by 12 cm Stage V Left Medial Cluteal Pressure Ulceration with slough, debris and some drainage. There is no odor, purulence or surrounding erythema Additionally, there is a much smaller Right Gluteal Pressure Ulceration that is also currently unstageable but is roughly 3x4cm) Results Labs Result diagrams: 10/22/21 05:12 10/22/21 05:12 Labs: Abnormal lab results 10/22/21 10/22/21 10/22/21 Range/Units 05:12 05:12 05:12 WBC 12.7 H (4.5-11.0) K/mcL RBC 2.59 L (4.63-6.08) M/mcL Hgb 8.8 L (13.7-17.5) g/dL Hct 27.5 L (40.1-51.0) % MCV 106.2 H (80.0-100.0) fL RDW 15.1 H (11.5-14.5) % Plt Count 591 H (140-440) K/mcL Immature Gran % (Auto) 1.0 H (0.0-0.5) % Neut % (Auto) 79.0 H (38.0-78.0) % Lymph % (Auto) 11.8 L (15.5-49.0) % Lymph # (Auto) 1.49 L (1.50-4.80) K/mcL Immature Gran # 0.13 H (0.00-0.05) K/mcl Absolute Neutrophils 10.13 H (1.80-8.00) K/mcL Creatinine 0.6 L (0.7-1.2) mg/dL ALT 40 H (<40) U/L Lactate Dehydrogenase 257 H (135-225) U/L C-Reactive Protein 5.00 H (0.03-0.80) mg/dL Albumin 3.0 L (3.2-5.2) gm/dL Prealbumin 12.6 L (20.0-40.0) mg/dL Diabetes panel 10/22/21 10/22/21 Range/Units 05:12 05:12 Sodium 136 (133-145) mmol/L Potassium 4.4 (3.3-5.1) mmol/L Chloride 101 (96-108) mmol/L Carbon Dioxide 25 (22-30) mmol/L BUN 15 (8-23) mg/dL Creatinine 0.6 L (0.7-1.2) mg/dL Glucose 91 (70-105) mg/dL Hemoglobin A1c 5.0 (4.0-6.0) % Hgb Calcium 9.0 (8.6-10.4) mg/dL AST 35 (<40) U/L ALT 40 H (<40) U/L Alkaline Phosphatase 95 (39-117) U/L Total Protein 6.0 (5.9-8.4) gm/dL Albumin 3.0 L (3.2-5.2) gm/dL Triglycerides 57 (<150) mg/dL Thyroid panel 10/22/21 Range/Units 05:12 TSH 4.29 (0.27-5.01) uIU/mL Calcium panel 10/22/21 Range/Units 05:12 Calcium 9.0 (8.6-10.4) mg/dL Phosphorus 3.8 (2.5-4.5) mg/dL Albumin 3.0 L (3.2-5.2) gm/dL Pituitary panel 10/22/21 10/22/21 Range/Units 05:12 05:12 Sodium 136 (133-145) mmol/L Potassium 4.4 (3.3-5.1) mmol/L Chloride 101 (96-108) mmol/L Carbon Dioxide 25 (22-30) mmol/L BUN 15 (8-23) mg/dL Creatinine 0.6 L (0.7-1.2) mg/dL Glucose 91 (70-105) mg/dL Calcium 9.0 (8.6-10.4) mg/dL TSH 4.29 (0.27-5.01) uIU/mL Adrenal panel 10/22/21 Range/Units 05:12 Sodium 136 (133-145) mmol/L Potassium 4.4 (3.3-5.1) mmol/L Chloride 101 (96-108) mmol/L Carbon Dioxide 25 (22-30) mmol/L BUN 15 (8-23) mg/dL Creatinine 0.6 L (0.7-1.2) mg/dL Glucose 91 (70-105) mg/dL Calcium 9.0 (8.6-10.4) mg/dL Total Bilirubin 0.3 (0.1-1.0) mg/dL AST 35 (<40) U/L ALT 40 H (<40) U/L Alkaline Phosphatase 95 (39-117) U/L Total Protein 6.0 (5.9-8.4) gm/dL Albumin 3.0 L (3.2-5.2) gm/dL All other labs normal. A/P Assessment and plan (1) Decubitus ulcer: Assessment and plan: Left and Right Gluteal Pressure Ulcerations Agree with need for Operative Debridement of both the Right and Left Gluteal Wounds. I think there is a good chance both these areas would heal nicely with Wound VAC assistance and I don't see any need for stomal diversion at this time as he is reportedly fully continent and the larger wound should be well protected with VAC Placement Risks, Benefits, Potential Complications and Altenative Treatment Options are all reviewed and discussed at length and we will plan to proceed to the OR tomorrow Status: Acute Narrative Plan of Treatment: Plan: I have discussed this situation with Dr. Barksdale. Operations Engineer AND with Dr. Neri Thomas. General surgeon. Please have CM, SW to coordinate further ongoing care. Wound care to continue. Will follow patient during his hospitalization. Time Spent With Patient Time: Total time spent is greater than 50% in coordination of care (as documented) at patient's floor/unit and/or counseling patient:
[2021-10-23] MEDS: 0.9 % SODIUM CHLORIDE 10 ML SYRINGE IV SCH ×3 (05:14→20:32)
[2021-10-23] MEDS: PIPERACILLIN SODIUM/TAZOBACTAM 3.375 GM in DEXTROSE 5% IN WATER 50 ML IV SCH ×3 (05:14→17:09)
[2021-10-23 06:42] LABS: Basophils # (Auto) 0.08 K/mcL (0.00-0.30); Basophils % (Auto) 0.7 % (0.0-2.0); Eosinophils # (Auto) 0.11 K/mcL (0.00-0.70); Hemoglobin 8.6 g/dL (13.7-17.5); Lymphocytes # (Auto) 1.75 K/mcL (1.50-4.80); Lymphocytes % (Auto) 15.5 % (15.5-49.0); Mean Cell Volume 101.2 fL (80.0-100.0); Mean Corpuscular HGB Conc 33.1 g/dL (31.0-36.0); Mean Platelet Volume 8.8 fL (7.4-10.4); Monocytes % (Auto) 7.1 % (1.0-12.0); Neutrophils % (Auto) 74.8 % (38.0-78.0); Platelet Count 609 K/mcL (140-440); RBC 2.57 M/mcL (4.63-6.08); Red Cell Distribution Width 14.6 % (11.5-14.5); WBC 11.3 K/mcL (4.5-11.0)
--- NOTE | 2021-10-23 07:13 | Internal Med Progress Note ---
SUBJECTIVE Subjective Patient information: Note initiated : 10/23/21 at 7:05 am Service Date, if different from initiated Date: [] Patient: Jesse Augustin a 65 y/o M admitted on 10/20/21 for Wound Care. Chief Complaint: [] Principal diagnosis: Outside hospital transfer for wound mx Interval history: Chief complaint: Decubitus pressure ulcers requiring debridement History of present illness: Mr. Augustin is a 65 year old M with a past medical history significant for alcohol abuse, lung mass of unknown etiology, severe protein calorie malnutrition, failure to thrive, and COPD who was transferred from outside hospital for fur ther management and evaluation of his decubitus pressure ulcers. The case was discussed with Dr. Sanches who kindly agreed to accept the patient for surgical debridement. The patient lives alone, has no family or support group. He had a fall at home and was down for nearly 3 days. He states that he has dizzy spells from time to time. He denied any prodromal symptoms. Iit is believed the pressure ulcers may have been caused by the fact that he was down for 72 hours. At baseline he is quite malnourished and frail appearing as his weight is now 103 pounds. He states that he weighed 125 pounds last year. A friend eventually found him down and brought him to the outside ER. Of note, per my discussion with the outside ER physician, he is to be followed up with the automobile upholsterer for bronchoscopy and biopsy of his lung mass that may be malignant in etiology. At this point, there is been no significant goals of care discussion. The hospitalist service has been asked admit the patient for further management and evaluation of his numerous decubitus pressure ulcers that required juan ridement. 10/21 I admitted him last night. He has no active complaints or concerns.The patient was resting comfortably in bed. 10/22 No new complaints. Patient ate most of his breakfast this morning. Continue wound care treatment. 10/23 Patient having dark liquid stools that are guaiac positive. We will discussed with Dr. Thomas as patient will benefit from eventual endoscopy. Monitor H&H. Review of Systems: denies headache/fever/chills/nausea/vomiting/chest or abdominal pain/cough/dyspnea/diarrhea. Otherwise see above. Constitutional Vitals: Vital Signs Temp Pulse Resp BP Pulse Ox O2 Del Method 98.3 F 81 16 119/78 98 10/23/21 05:13 10/23/21 05:13 10/23/21 05:13 10/23/21 05:13 10/23/21 05:13 10/23/21 05:13 Period Temp Pulse Resp BP Sys/Mendosa Pulse Ox O2 Del Method O2 Flow Rate Last 24 Hr 98.2 F-99.1 F 71-90 15-20 93-128/58-78 96-100 Room Air-Room Air Intake and Output 10/22/21 10/23/21 10/23/21 21:59 05:59 13:59 Intake Total 730 250 50 Output Total 400 150 Balance 330 100 50 Weight 44.135 kg Intake & Output: Intake & Output 10/22/21 10/23/21 10/23/21 21:59 05:59 13:59 Intake Total 730 250 50 Output Total 400 150 Balance 330 100 50 Weight 44.135 kg Intake: IV 50 50 50 Zosyn 3.375 gm In Dextrose 5% 50 50 50 in Water 50 ml @ 100 mls/hr IV Q6H [facility] Rx#:[id number] Oral 680 200 Output: Void Amount 400 150 Other: Meal Lunch Percent of Meal Consumed 50% Urine Appearance Clear Clear Urine Color Bright Yellow Bright Yellow Urine Odor Normal Stool Size Small Small Stool Color Brown Black Stool Consistency Liquid Liquid # Voids 1 # Bowel Movements 1 # of times incontinent of 1 1 Bowels Exam: General: Alert, Awake, No acute Distress, frail cachectic Eyes/N/T: EOMI, Head/Neck: neck supple, CV: RRR, No murmurs, Pulm: Clear b/l, no wheezing/rhonchi/rales Abd: soft, nontender, +BS x4 Ext: no clubbing/cyanosis/edema. pressure wounds lower thighs and left buttock Neuro: Alert, no focal deficits, moves all extremities, Skin: warm/dry OBJ DATA Labs CBC & Chem 7: 10/23/21 05:40 10/23/21 05:40 Labs: Abnormal Lab Results 10/23/21 10/22/21 10/22/21 05:40 05:12 05:12 WBC 11.3 H RBC 2.57 L Hgb 8.6 L Hct 26.0 L MCV 101.2 H RDW 14.6 H Plt Count 609 H Immature Gran % (Auto) 0.9 H Neut % (Auto) Lymph % (Auto) Lymph # (Auto) Immature Gran # 0.10 H Absolute Neutrophils 8.57 H ESR Creatinine 0.6 L ALT 40 H Lactate Dehydrogenase 257 H C-Reactive Protein 5.00 H Albumin 3.0 L Prealbumin 12.6 L 10/22/21 10/21/21 10/21/21 05:12 06:14 06:14 WBC 12.7 H 13.2 H RBC 2.59 L 2.76 L Hgb 8.8 L 9.0 L Hct 27.5 L 28.1 L MCV 106.2 H 101.8 H RDW 15.1 H 15.4 H Plt Count 591 H 647 H Immature Gran % (Auto) 1.0 H 0.9 H Neut % (Auto) 79.0 H 80.0 H Lymph % (Auto) 11.8 L 12.0 L Lymph # (Auto) 1.49 L Immature Gran # 0.13 H 0.12 H Absolute Neutrophils 10.13 H 10.71 H ESR 54 H Creatinine 0.6 L ALT Lactate Dehydrogenase C-Reactive Protein 6.50 H Albumin Prealbumin Meds: Medications Acetaminophen (Acetaminophen 325 Mg Tablet) 650 mg PO Q6HP PRN; Protocol PRN Reason: Per Pain Protocol/Fever > 101 Albuterol/Ipratropium (Ipratropium/Albuterol 3 Ml Ampul.Neb) 3 ml NEB ONCE PRN PRN Reason: Shortness Of Breath Stop: 10/23/21 23:59 Collagenase (Collagenase Top Oint Tube 30gm) 1 dose TOPICAL DAILY [facility] Last Admin: 10/22/21 11:19 Dose: 1 dose Docusate Sodium (Docusate Sodium 100 Mg Capsule) 100 mg PO BID [facility] Last Admin: 10/22/21 19:46 Dose: Not Given Enoxaparin Sodium (Enoxaparin 40 Mg/0.4 Ml Syringe) 40 mg SQ DAILY [facility] Last Admin: 10/22/21 16:04 Dose: Not Given Folic Acid (Folic Acid 1 Mg Tablet) 1 mg PO DAILY [facility] Last Admin: 10/22/21 10:52 Dose: 1 mg Piperacillin Sod/Tazobactam (Sod 3.375 gm/ Dextrose) 50 mls @ 100 mls/hr IV Q6H [facility] Last Infusion: 10/23/21 06:00 Dose: Infused Iron Carb/Multivit/Tift/Folic Acid (Multivit,Ther Iron,Ca,Fa & Min 1 Tablet) 1 tab PO DAILY [facility] Last Admin: 10/22/21 10:52 Dose: 1 tab Ondansetron HCl (Ondansetron 4 Mg/2 Ml Vial) 4 mg IV Q6HP PRN PRN Reason: Nausea And Vomiting Oxycodone/Acetaminophen (Oxycodone/Apap 5/325mg Tablet) 1 tab PO Q4HP PRN; Protocol PRN Reason: Per Pain Protocol Scopolamine (Scopolamine 1 Patch Patch) 1 patch TOPICAL PREOP PRN PRN Reason: Nausea And Vomiting Stop: 10/23/21 23:59 Senna (Sennosides 1 Tablet) 2 tab PO HS [facility] Last Admin: 10/22/21 19:46 Dose: Not Given Sodium Chloride (0.9 % Sodium Chloride 10 Ml Syringe) 10 ml IV Q8 [facility] Last Admin: 10/23/21 05:14 Dose: 10 ml Thiamine HCl (Thiamine 100 Mg Tablet) 100 mg PO DAILY [facility] Last Admin: 10/22/21 10:52 Dose: 100 mg A/P Narrative A/P Narrative: A: #Recurrent falls: 2/2 EtOH abuse + sarcopenia + hypovolemia/poor PO intake #Severe protein calorie malnutrition: Muscle &fat loss/poor functional status -Weight is down 20lbs, prealbumin low -The patient is high risk for redevelopment of wounds, or ongoing poor wound healing #Decubitus wounds, infection: 2/2 being found down x 72h #EtOH withdrawal: Monitored at the outside hospital, now stable #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 Barksdale #Tobacco abuse: #COPD (not on home O2): #Anemia, acute blood loss anemia on chronic 2/2 GI bleed: #GI bleed: seems to be slow bleed P: -Dr. Sanches/wound care/Dr. Thomas for debridement today -Dietary consult -PT/OT -monitor H&H, eventual endoscopy -abx -Smoking cessation counseling -Follow-up with Dr. Barksdale regardin mass -f/u with cardio regarding CT findings -ppx: SCD (hold chemical for GI bleed) DNR/DNI Time Spent With Patient Time: Total time spent is greater than 50% in coordination of care (as documented) at patient's floor/unit and/or counseling patient: Total time spent with greater than 50% in coordination of care (as documented) at patient's floor/unit and/or counseling patient:: 25 - 35 minutes
[2021-10-23 07:23] LABS: Blood Urea Nitrogen 13 mg/dL (8-23); Calcium 8.9 mg/dL (8.6-10.4); Carbon Dioxide 29 mmol/L (22-30); Chloride 101 mmol/L (96-108); Glomerular Filtration Rate 103; Glucose 99 mg/dL (70-105)
[2021-10-23] MEDS: DOCUSATE SODIUM 100 MG CAPSULE PO SCH ×2 (08:01→19:21)
[2021-10-23] MEDS: FOLIC ACID 1 MG TABLET PO SCH (08:01)
[2021-10-23] MEDS: THIAMINE 100 MG TABLET PO SCH (08:01)
[2021-10-23] MEDS: MULTIVIT,THER IRON,CA,FA & MIN 1 TABLET PO SCH (08:01)
[2021-10-23] MEDS: PANTOPRAZOLE 40 MG VIAL IV SCH ×2 (08:42→16:02)
[2021-10-23] MEDS ORDERED: 0.9 % SODIUM CHLORIDE 1,000 ML IV ONE (09:05)
--- NOTE | 2021-10-23 09:25 | General Surgery Progress Note ---
SUBJECTIVE Subjective Patient information: Note initiated : 10/23/21 at 9:22 am Service Date, if different from initiated Date: [] Patient: Jesse Augustin 65 y/o M admitted on 10/20/21 for Wound Care. Chief Complaint: [] Principal diagnosis: Outside hospital transfer for wound mx Additional PMFSH (Level 3 Only): Plans for OR today reviewed. Appreciate Dr. Thomas's input and help. Constitutional Vitals: Vital Signs Temp Pulse Resp BP Pulse Ox O2 Del Method 97.6 F 71 17 117/69 98 10/23/21 08:00 10/23/21 08:00 10/23/21 08:00 10/23/21 08:00 10/23/21 08:00 10/23/21 08:00 Period Temp Pulse Resp BP Sys/Mendosa Pulse Ox O2 Del Method O2 Flow Rate Last 24 Hr 97.6 F-99.1 F 71-90 15-20 98-128/65-78 96-100 Room Air-Room Air Intake and Output 10/22/21 10/23/21 10/23/21 21:59 05:59 13:59 Intake Total 730 250 50 Output Total 400 150 250 Balance 330 100 -200 Weight 97 lb 4.8 oz Intake & Output: Intake & Output 10/22/21 10/23/21 10/23/21 21:59 05:59 13:59 Intake Total 730 250 50 Output Total 400 150 250 Balance 330 100 -200 Weight 97 lb 4.8 oz Intake: IV 50 50 50 Zosyn 3.375 gm In Dextrose 5% 50 50 50 in Water 50 ml @ 100 mls/hr IV Q6H [facility] Rx#:[id number] Oral 680 200 Output: Void Amount 400 150 Stool 250 Other: Meal Lunch Percent of Meal Consumed 50% Urine Appearance Clear Clear Urine Color Bright Yellow Bright Yellow Urine Odor Normal Stool Size Small Small Stool Color Brown Black Brown Blood Tinged Stool Consistency Liquid Liquid Loose # Voids 1 # Bowel Movements 1 # of times incontinent of 1 1 Bowels Exam: Status quo. For OR today. A/P Narrative A/P Narrative: Assessment; Agree with ongoing care for this patient. Spoke with Dr. Jerry. Plan of Treatment: Plan: Await developments. Await input from ИВАН LOPEZ Reg: Continuity of care for Mr. Augustin. Time Spent With Patient Time: Total time spent is greater than 50% in coordination of care (as documented) at patient's floor/unit and/or counseling patient: Total time spent with greater than 50% in coordination of care (as documented) at patient's floor/unit and/or counseling patient:: less than 15 minutes
[2021-10-23] MEDS ORDERED: IPRATROPIUM/ALBUTEROL 3 ML AMPUL.NEB NEB PRN (10:00)
[2021-10-23] MEDS ORDERED: SCOPOLAMINE 1 PATCH PATCH TOPICAL PRN (10:00)
[2021-10-23] MEDS ORDERED: MIDAZOLAM 2 MG/2 ML VIAL ONE (11:31)
[2021-10-23] MEDS ORDERED: fentaNYL 100 MCG/2 ML VIAL IV ONE (11:31)
[2021-10-23] MEDS ORDERED: KETAMINE 50 MG/ML Syringe (ANEST) IV ONE (11:31)
[2021-10-23] MEDS ORDERED: GLYCOPYRROLATE 0.2 MG/ML VIAL IV ONE (11:31)
[2021-10-23] MEDS ORDERED: ONDANSETRON 4 MG/2 ML VIAL ONE (11:31)
[2021-10-23] MEDS: COLLAGENASE TOP OINT TUBE 30GM TOPICAL SCH ×2 (11:38→14:19)
--- NOTE | 2021-10-23 15:06 | Brief Operative Note ---
Brief Operative Note Date of procedure: 10/23/21 Pre-op diagnosis: Left and Right Gluteal Pressure Ulcerations Post-op diagnosis: same Procedure: Debridement Left and Right Gluteal Pressure Ulcerations Grafts/Implants: No Anesthesia: MAC Findings: Large amounts of necrotic debris and slough @ Right and Left Stage IV Gluteal Pressure Wounds Complications: none Surgeon: Neri Thomas Estimated blood loss (cc): 20 Specimens Removed/Pathology: other (Wound Cultures x 2 ) Condition: stable Disposition: PACU
[2021-10-23] MEDS: SUCRALFATE 1 GM/10 ML ORAL.SUSP PO SCH ×3 (15:58→20:32)
[2021-10-23] MEDS: SENNOSIDES 1 TABLET PO SCH (19:21)
[2021-10-24] MEDS: PIPERACILLIN SODIUM/TAZOBACTAM 3.375 GM in DEXTROSE 5% IN WATER 50 ML IV SCH ×5 (00:50→23:21)
[2021-10-24] MEDS: 0.9 % SODIUM CHLORIDE 10 ML SYRINGE IV SCH ×3 (05:53→21:23)
[2021-10-24 06:51] LABS: Basophils # (Auto) 0.07 K/mcL (0.00-0.30); Basophils % (Auto) 0.6 % (0.0-2.0); Eosinophils # (Auto) 0.15 K/mcL (0.00-0.70); Eosinophils % (Auto) 1.3 % (0.0-7.0); Hematocrit 25.1 % (40.1-51.0); Hemoglobin 8.2 g/dL (13.7-17.5); Lymphocytes # (Auto) 1.68 K/mcL (1.50-4.80); Lymphocytes % (Auto) 14.1 % (15.5-49.0); Mean Cell Volume 101.2 fL (80.0-100.0); Mean Corpuscular HGB Conc 32.7 g/dL (31.0-36.0); Mean Platelet Volume 8.8 fL (7.4-10.4); Monocytes # (Auto) 0.81 K/mcL (0.10-0.90); Monocytes % (Auto) 6.8 % (1.0-12.0); Platelet Count 571 K/mcL (140-440); RBC 2.48 M/mcL (4.63-6.08); Red Cell Distribution Width 14.6 % (11.5-14.5)
[2021-10-24 07:20] LABS: ALT/SGPT 31 U/L (<40); AST/SGOT 24 U/L (<40); Albumin/Globulin Ratio 1.1 (1.0-2.3); Alkaline Phosphatase 84 U/L (39-117); Bilirubin,Direct < 0.2 mg/dL (0-0.3); Bilirubin,Total < 0.2 mg/dL (0.1-1.0); Blood Urea Nitrogen 6 mg/dL (8-23); Calcium 8.7 mg/dL (8.6-10.4); Carbon Dioxide 26 mmol/L (22-30); Chloride 103 mmol/L (96-108); Globulin 2.7 gm/dL (2.2-3.7); Glomerular Filtration Rate 97; Glucose 83 mg/dL (70-105); Lactate Dehydrogenase 151 U/L (135-225); Phosphorous 3.1 mg/dL (2.5-4.5); Triglycerides 57 mg/dL (<150); Uric Acid 2.7 mg/dL (2.5-8.0)
--- NOTE | 2021-10-24 07:29 | Internal Med Progress Note ---
SUBJECTIVE Subjective Patient information: Note initiated : 10/24/21 at 7:26 am Service Date, if different from initiated Date: [] Patient: Jesse Augustin a 65 y/o M admitted on 10/20/21 for Wound Care. Chief Complaint: [] Principal diagnosis: Outside hospital transfer for wound mx Interval history: Chief complaint: Decubitus pressure ulcers requiring debridement History of present illness: Mr. Augustin is a 65 year old M with a past medical history significant for alcohol abuse, lung mass of unknown etiology, severe protein calorie malnutrition, failure to thrive, and COPD who was transferred from outside hospital for fur ther management and evaluation of his decubitus pressure ulcers. The case was discussed with Dr. Sanches who kindly agreed to accept the patient for surgical debridement. The patient lives alone, has no family or support group. He had a fall at home and was down for nearly 3 days. He states that he has dizzy spells from time to time. He denied any prodromal symptoms. Iit is believed the pressure ulcers may have been caused by the fact that he was down for 72 hours. At baseline he is quite malnourished and frail appearing as his weight is now 103 pounds. He states that he weighed 125 pounds last year. A friend eventually found him down and brought him to the outside ER. Of note, per my discussion with the outside ER physician, he is to be followed up with the producer director for bronchoscopy and biopsy of his lung mass that may be malignant in etiology. At this point, there is been no significant goals of care discussion. The hospitalist service has been asked admit the patient for further management and evaluation of his numerous decubitus pressure ulcers that required juan ridement. 10/21 I admitted him last night. He has no active complaints or concerns.The patient was resting comfortably in bed. 10/22 No new complaints. Patient ate most of his breakfast this morning. Continue wound care treatment. 10/23 Patient having dark liquid stools that are guaiac positive. We will discussed with Dr. Thomas as patient will benefit from eventual endoscopy. Monitor H&H. 10/24 Feeling little bit better today. Last couple guaiacs were negative for occult blood in the stool. Slow bleed which I suspect is gastritis seems to have stopped. Patient had surgical debridement of wound yesterday. Hemoglobin 8.2 today down from 8.6 yesterday. Transfuse if 8. Review of Systems: denies headache/fever/chills/nausea/vomiting/chest or abdominal pain/cough/dyspnea/diarrhea. Otherwise see above. Constitutional Vitals: Vital Signs Temp Pulse Resp BP Pulse Ox O2 Del Method 97.9 F 69 16 114/77 99 10/24/21 03:45 10/24/21 03:45 10/24/21 03:45 10/24/21 03:45 10/24/21 03:45 10/24/21 03:45 Period Temp Pulse Resp BP Sys/[place] Pulse Ox O2 Del Method O2 Flow Rate Last 24 Hr 96.7 F-98.2 F 58-79 16-17 104-155/68-111 98-100 Room Air-Room Air Intake and Output 10/23/21 10/24/21 10/24/21 21:59 05:59 13:59 Intake Total 1250 900 50 Output Total 75 630 Balance 1175 270 50 Weight 46.72 kg Intake & Output: Intake & Output 10/23/21 10/24/21 10/24/21 21:59 05:59 13:59 Intake Total 1250 900 50 Output Total 75 630 Balance 1175 270 50 Weight 46.72 kg Intake: IV 1050 50 50 Sodium Chloride 0.9% 1,000 ml @ 1000 50 mls/hr IV .Q20H [facility] Rx#: [id number] Zosyn 3.375 gm In Dextrose 5% 50 50 50 in Water 50 ml @ 100 mls/hr IV Q6H [facility] Rx#:[id number] Oral 200 850 Output: Void Amount 75 630 Other: Meal Dinner Percent of Meal Consumed 100% Feeding Ability Independent Urine Appearance Clear Clear Urine Color Pale Bright Yellow Urine Odor Normal Normal Exam: General: Alert, Awake, No acute Distress, frail cachectic Eyes/N/T: EOMI, Head/Neck: neck supple, CV: RRR, No murmurs, Pulm: Clear b/l, no wheezing/rhonchi/rales Abd: soft, nontender, +BS x4 Ext: no clubbing/cyanosis/edema. pressure wounds lower thighs and left buttock in dressings Neuro: Alert, no focal deficits, moves all extremities, Skin: warm/dry OBJ DATA Labs CBC & Chem 7: 10/24/21 05:39 10/24/21 05:39 Labs: Abnormal Lab Results 10/24/21 10/24/21 10/23/21 05:39 05:39 07:21 WBC 12.0 H RBC 2.48 L Hgb 8.2 L Hct 25.1 L MCV 101.2 H RDW 14.6 H Plt Count 571 H Immature Gran % (Auto) 1.2 H Neut % (Auto) Lymph % (Auto) 14.1 L Lymph # (Auto) Immature Gran # 0.14 H Absolute Neutrophils 9.24 H BUN 6 L Creatinine ALT Lactate Dehydrogenase C-Reactive Protein Total Protein 5.7 L Albumin 3.0 L Prealbumin Folate > 20.0 H 10/23/21 10/23/21 10/22/21 05:40 05:40 05:12 WBC 11.3 H RBC 2.57 L Hgb 8.6 L Hct 26.0 L MCV 101.2 H RDW 14.6 H Plt Count 609 H Immature Gran % (Auto) 0.9 H Neut % (Auto) Lymph % (Auto) Lymph # (Auto) Immature Gran # 0.10 H Absolute Neutrophils 8.57 H BUN Creatinine 0.6 L 0.6 L ALT 40 H Lactate Dehydrogenase 257 H C-Reactive Protein Total Protein Albumin 3.0 L Prealbumin Folate 10/22/21 10/22/21 05:12 05:12 WBC 12.7 H RBC 2.59 L Hgb 8.8 L Hct 27.5 L MCV 106.2 H RDW 15.1 H Plt Count 591 H Immature Gran % (Auto) 1.0 H Neut % (Auto) 79.0 H Lymph % (Auto) 11.8 L Lymph # (Auto) 1.49 L Immature Gran # 0.13 H Absolute Neutrophils 10.13 H BUN Creatinine ALT Lactate Dehydrogenase C-Reactive Protein 5.00 H Total Protein Albumin Prealbumin 12.6 L Folate Meds: Medications Acetaminophen (Acetaminophen 325 Mg Tablet) 650 mg PO Q6HP PRN; Protocol PRN Reason: Per Pain Protocol/Fever > 101 Collagenase (Collagenase Top Oint Tube 30gm) 1 dose TOPICAL DAILY [facility] Last Admin: 10/23/21 14:19 Dose: 1 dose Docusate Sodium (Docusate Sodium 100 Mg Capsule) 100 mg PO BID [facility] Last Admin: 10/23/21 19:21 Dose: Not Given Folic Acid (Folic Acid 1 Mg Tablet) 1 mg PO DAILY [facility] Last Admin: 10/23/21 08:01 Dose: Not Given Piperacillin Sod/Tazobactam (Sod 3.375 gm/ Dextrose) 50 mls @ 100 mls/hr IV Q6H [facility] Last Infusion: 10/24/21 06:48 Dose: Infused Iron Carb/Multivit/[place]/Folic Acid (Multivit,Ther Iron,Ca,Fa & Min 1 Tablet) 1 tab PO DAILY [facility] Last Admin: 10/23/21 08:01 Dose: Not Given Ondansetron HCl (Ondansetron 4 Mg/2 Ml Vial) 4 mg IV Q6HP PRN PRN Reason: Nausea And Vomiting Oxycodone/Acetaminophen (Oxycodone/Apap 5/325mg Tablet) 1 tab PO Q4HP PRN; Protocol PRN Reason: Per Pain Protocol Pantoprazole Sodium (Pantoprazole 40 Mg Vial) 40 mg IV BIDAC [facility] Last Admin: 10/23/21 16:02 Dose: 40 mg Senna (Sennosides 1 Tablet) 2 tab PO HS [facility] Last Admin: 10/23/21 19:21 Dose: Not Given Sodium Chloride (0.9 % Sodium Chloride 10 Ml Syringe) 10 ml IV Q8 [facility] Last Admin: 10/24/21 05:53 Dose: 10 ml Sucralfate (Sucralfate 1 Gm/10 Ml Oral.Susp) 1 gm PO ACHS [facility] Stop: 10/25/21 07:31 Last Admin: 10/23/21 20:32 Dose: 1 gm Thiamine HCl (Thiamine 100 Mg Tablet) 100 mg PO DAILY [facility] Last Admin: 10/23/21 08:01 Dose: Not Given A/P Narrative A/P Narrative: A: #Recurrent falls: 2/2 EtOH abuse + sarcopenia + hypovolemia/poor PO intake #Severe protein calorie malnutrition: Muscle &fat loss/poor functional status -Weight is down 20lbs, prealbumin low -The patient is high risk for redevelopment of wounds, or ongoing poor wound healing #Decubitus wounds, infection: 2/2 being found down x 72h #EtOH withdrawal: Monitored at the outside hospital, now stable #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 Barksdale #Tobacco abuse: #COPD (not on home O2): #Anemia, acute blood loss anemia on chronic 2/2 GI bleed: #GI bleed: likely gastritis given etoh, no abd pain; seems to be slow bleed. may have stopped as last 2 FOBT were neg P: -Dr. Sanches/wound care/Dr. Thomas for debridement today -Dietary consult -PT/OT -monitor H&H, transfuse at 8, eventual endoscopy -ppi bid -abx -Smoking cessation counseling -Follow-up with Dr. Barksdale regarding mass -f/u with cardio regarding CT findings -ppx: SCD (hold chemical for GI bleed) DNR/DNI Plan of Treatment: Plan: Await developments. Await input from ИВАН LOPEZ Reg: Continuity of care for Mr. Augustin. Time Spent With Patient Time: Total time spent is greater than 50% in coordination of care (as documented) at patient's floor/unit and/or counseling patient: Total time spent with greater than 50% in coordination of care (as documented) at patient's floor/unit and/or counseling patient:: 25 - 35 minutes
[2021-10-24] MEDS: PANTOPRAZOLE 40 MG VIAL IV SCH ×2 (09:33→17:45)
[2021-10-24] MEDS: FOLIC ACID 1 MG TABLET PO SCH (09:34)
[2021-10-24] MEDS: MULTIVIT,THER IRON,CA,FA & MIN 1 TABLET PO SCH (09:34)
[2021-10-24] MEDS: THIAMINE 100 MG TABLET PO SCH (09:34)
[2021-10-24] MEDS: SUCRALFATE 1 GM/10 ML ORAL.SUSP PO SCH ×4 (09:34→21:23)
[2021-10-24] MEDS: COLLAGENASE TOP OINT TUBE 30GM TOPICAL SCH (16:52)
[2021-10-25] MEDS: PIPERACILLIN SODIUM/TAZOBACTAM 3.375 GM in DEXTROSE 5% IN WATER 50 ML IV SCH ×4 (05:06→23:00)
[2021-10-25] MEDS: 0.9 % SODIUM CHLORIDE 10 ML SYRINGE IV SCH ×3 (05:06→20:08)
[2021-10-25 06:39] LABS: Hematocrit 26.2 % (40.1-51.0); Hemoglobin 8.4 g/dL (13.7-17.5)
[2021-10-25] MEDS: SUCRALFATE 1 GM/10 ML ORAL.SUSP PO SCH ×4 (07:41→20:08)
[2021-10-25] MEDS: THIAMINE 100 MG TABLET PO SCH (07:41)
[2021-10-25] MEDS: PANTOPRAZOLE 40 MG VIAL IV SCH ×2 (07:41→17:09)
[2021-10-25] MEDS: FOLIC ACID 1 MG TABLET PO SCH (07:41)
[2021-10-25] MEDS: MULTIVIT,THER IRON,CA,FA & MIN 1 TABLET PO SCH (07:41)
--- NOTE | 2021-10-25 09:08 | Internal Med Progress Note ---
SUBJECTIVE Subjective Patient information: Note initiated : 10/25/21 at 9:04 am Service Date, if different from initiated Date: [] Patient: Jesse Augustin a 65 y/o M admitted on 10/20/21 for Wound Care. Chief Complaint: [] Principal diagnosis: Outside hospital transfer for wound mx Interval history: Chief complaint: Decubitus pressure ulcers requiring debridement History of present illness: Mr. Augustin is a 65 year old M with a past medical history significant for alcohol abuse, lung mass of unknown etiology, severe protein calorie malnutrition, failure to thrive, and COPD who was transferred from outside hospital for fur ther management and evaluation of his decubitus pressure ulcers. The case was discussed with Dr. Sanches who kindly agreed to accept the patient for surgical debridement. The patient lives alone, has no family or support group. He had a fall at home and was down for nearly 3 days. He states that he has dizzy spells from time to time. He denied any prodromal symptoms. Iit is believed the pressure ulcers may have been caused by the fact that he was down for 72 hours. At baseline he is quite malnourished and frail appearing as his weight is now 103 pounds. He states that he weighed 125 pounds last year. A friend eventually found him down and brought him to the outside ER. Of note, per my discussion with the outside ER physician, he is to be followed up with the major gifts director for bronchoscopy and biopsy of his lung mass that may be malignant in etiology. At this point, there is been no significant goals of care discussion. The hospitalist service has been asked admit the patient for further management and evaluation of his numerous decubitus pressure ulcers that required juan ridement. 10/21 I admitted him last night. He has no active complaints or concerns.The patient was resting comfortably in bed. 10/22 No new complaints. Patient ate most of his breakfast this morning. Continue wound care treatment. 10/23 Patient having dark liquid stools that are guaiac positive. We will discussed with Dr. Thomas as patient will benefit from eventual endoscopy. Monitor H&H. 10/24 Feeling little bit better today. Last couple guaiacs were negative for occult blood in the stool. Slow bleed which I suspect is gastritis seems to have stopped. Patient had surgical debridement of wound yesterday. Hemoglobin 8.2 today down from 8.6 yesterday. Transfuse if 8. 10/25 No overnight event or new complaints. Hemoglobin slightly better today. Wound VAC in place. Review of Systems: denies headache/fever/chills/nausea/vomiting/chest or abdominal pain/cough/dyspnea/diarrhea. Otherwise see above. Constitutional Vitals: Vital Signs Temp Pulse Resp BP Pulse Ox O2 Del Method 97.7 F 78 17 115/70 94 10/25/21 07:42 10/25/21 07:42 10/25/21 07:42 10/25/21 07:42 10/25/21 07:42 10/25/21 07:42 Period Temp Pulse Resp BP Sys/[place] Pulse Ox O2 Del Method O2 Flow Rate Last 24 Hr 97.7 F-99.1 F 69-78 16-17 102-120/57-73 94-100 Room Air-Room Air Intake and Output 10/24/21 10/25/21 10/25/21 21:59 05:59 13:59 Intake Total 290 350 50 Output Total 625 500 480 Balance -335 -150 -430 Intake & Output: Intake & Output 10/24/21 10/25/21 10/25/21 21:59 05:59 13:59 Intake Total 290 350 50 Output Total 625 500 480 Balance -335 -150 -430 Intake: IV 50 50 50 Zosyn 3.375 gm In Dextrose 5% 50 50 50 in Water 50 ml @ 100 mls/hr IV Q6H [facility] Rx#:[id number] Oral 240 300 Output: Void Amount 625 500 480 Other: Meal Lunch Percent of Meal Consumed 50% Feeding Ability Independent Urine Appearance Clear Clear Urine Color Bright Yellow Bright Yellow Urine Odor Normal Stool Size Moderate Stool Color Brown Stool Consistency Soft # of times incontinent of 1 Bowels Exam: General: Alert, Awake, No acute Distress, frail cachectic Eyes/N/T: EOMI, Head/Neck: neck supple, CV: RRR, No murmurs, Pulm: Clear b/l, no wheezing/rhonchi/rales Abd: soft, nontender, +BS x4 Ext: no clubbing/cyanosis/edema. pressure wounds lower thighs and left buttock in dressings Neuro: Alert, no focal deficits, moves all extremities, Skin: warm/dry OBJ DATA Labs CBC & Chem 7: 10/25/21 05:26 10/24/21 05:39 Labs: Abnormal Lab Results 10/25/21 10/24/21 10/24/21 05:26 05:39 05:39 WBC 12.0 H RBC 2.48 L Hgb 8.4 L 8.2 L Hct 26.2 L 25.1 L MCV 101.2 H RDW 14.6 H Plt Count 571 H Immature Gran % (Auto) 1.2 H Lymph % (Auto) 14.1 L Immature Gran # 0.14 H Absolute Neutrophils 9.24 H BUN 6 L Creatinine Total Protein 5.7 L Albumin 3.0 L Folate 10/23/21 10/23/21 10/23/21 07:21 05:40 05:40 WBC 11.3 H RBC 2.57 L Hgb 8.6 L Hct 26.0 L MCV 101.2 H RDW 14.6 H Plt Count 609 H Immature Gran % (Auto) 0.9 H Lymph % (Auto) Immature Gran # 0.10 H Absolute Neutrophils 8.57 H BUN Creatinine 0.6 L Total Protein Albumin Folate > 20.0 H Meds: Medications Acetaminophen (Acetaminophen 325 Mg Tablet) 650 mg PO Q6HP PRN; Protocol PRN Reason: Per Pain Protocol/Fever > 101 Collagenase (Collagenase Top Oint Tube 30gm) 1 dose TOPICAL DAILY [facility] Last Admin: 10/24/21 16:52 Dose: 1 dose Folic Acid (Folic Acid 1 Mg Tablet) 1 mg PO DAILY [facility] Last Admin: 10/25/21 07:41 Dose: 1 mg Piperacillin Sod/Tazobactam (Sod 3.375 gm/ Dextrose) 50 mls @ 100 mls/hr IV Q6H [facility] Last Infusion: 10/25/21 06:26 Dose: Infused Iron Carb/Multivit/[place]/Folic Acid (Multivit,Ther Iron,Ca,Fa & Min 1 Tablet) 1 tab PO DAILY [facility] Last Admin: 10/25/21 07:41 Dose: 1 tab Ondansetron HCl (Ondansetron 4 Mg/2 Ml Vial) 4 mg IV Q6HP PRN PRN Reason: Nausea And Vomiting Oxycodone/Acetaminophen (Oxycodone/Apap 5/325mg Tablet) 1 tab PO Q4HP PRN; Protocol PRN Reason: Per Pain Protocol Pantoprazole Sodium (Pantoprazole 40 Mg Vial) 40 mg IV BIDAC [facility] Last Admin: 10/25/21 07:41 Dose: 40 mg Sodium Chloride (0.9 % Sodium Chloride 10 Ml Syringe) 10 ml IV Q8 [facility] Last Admin: 10/25/21 05:06 Dose: 10 ml Sucralfate (Sucralfate 1 Gm/10 Ml Oral.Susp) 1 gm PO ACHS [facility] Stop: 10/26/21 07:31 Last Admin: 10/25/21 07:41 Dose: 1 gm Thiamine HCl (Thiamine 100 Mg Tablet) 100 mg PO DAILY [facility] Last Admin: 10/25/21 07:41 Dose: 100 mg A/P Narrative A/P Narrative: A: #Recurrent falls: 2/2 EtOH abuse + sarcopenia + hypovolemia/poor PO intake #Severe protein calorie malnutrition: Muscle &fat loss/poor functional status -Weight is down 20lbs, prealbumin low -The patient is high risk for redevelopment of wounds, or ongoing poor wound healing #Decubitus wounds, infection: 2/2 being found down x 72h #EtOH withdrawal: Monitored at the outside hospital, now stable #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 Barksdale #Tobacco abuse: #COPD (not on home O2): #Anemia, acute blood loss anemia on chronic 2/2 GI bleed: #GI bleed: likely gastritis given etoh, no abd pain; seems to be slow bleed. may have stopped as last 2 FOBT were neg P: -Dr. Sanches/wound care/Dr. Thomas -Dietary consult -PT/OT -monitor H&H, transfuse at 8, eventual endoscopy (discussed with surgeon) -ppi bid -abx -Smoking cessation counseling -Follow-up with Dr. Barksdale regarding mass -f/u with cardio regarding CT findings -ppx: SCD (hold chemical for GI bleed) DNR/DNI Plan of Treatment: Plan: Await developments. Await input from ИВАН LOPEZ Reg: Continuity of care for Mr. Augustin. Time Spent With Patient Time: Total time spent is greater than 50% in coordination of care (as documented) at patient's floor/unit and/or counseling patient:
--- NOTE | 2021-10-25 10:27 | Discharge Summary ---
Discharge Provider Provider IMPORTANT FOLLOW-UP INFORMATION FOR PCP: Patient information: Note initiated : 10/25/21 at 10:25 am Service Date, if different from initiated Date: [] Patient: Jesse Augustin 65 y/o M admitted on 10/20/21 for Wound Care. Chief Complaint: [] Date of admission: 10/20/21 18:06 Discharge date: 10/26/21 Primary care physician: Taj Rankin Consults: 10/20/21 19:16 Consult to Physician [CONS] Routine Comment: Consulting Provider: Ánegl Sanches Reason For Exam: Physician to Consult 10/21/21 16:09 Consult to Physician [CONS] Routine Comment: Consulting Provider: Neri Thomas Reason For Exam: Physician to Consult 10/22/21 10:24 Consult to Physician [CONS] Routine Comment: Debridement of buttock wound. ? colostomy Consulting Provider: Neri Thomas Reason For Exam: Physician to Consult 10/22/21 14:35 Consult to Physician [CONS] Routine Comment: H/O Right lung mass. Suspicious of malignancy. Consulting Provider: Homer Barksdale Reason For Exam: Physician to Consult COURSE Hospital Course Hospital course: Chief complaint: Decubitus pressure ulcers requiring debridement History of present illness: Mr. Augustin is a 65 year old M with a past medical history significant for alcohol abuse, lung mass of unknown etiology, severe protein calorie malnutrition, failure to thrive, and COPD who was transferred from outside hospital for further management and evaluation of his decubitus pressure ulcers. The case was discussed with Dr. Sanches who kindly agreed to accept the patient for surgical debridement. The patient lives alone, has no family or support group. He had a fall at home and was down for nearly 3 days. He states that he has dizzy spells from time to time. He denied any prodromal symptoms. Iit is believed the pressure ulcers may have been caused by the fact that he was down for 72 hours. At baseline he is quite malnourished and frail appearing as his weight is now 103 pounds. He states that he weighed 125 pounds last year. A friend eventually found him down and brought him to the outside ER. Of note, per my discussion with the outside ER physician, he is to be followed up with the welcome hostess for bronchoscopy and biopsy of his lung mass that may be malignant in etiology. At this point, there is been no significant goals of care discussion. The hospitalist service has been asked admit the patient for further management and evaluation of his numerous decubitus pressure ulcers that required debridement. 10/21 I admitted him last night. He has no active complaints or concerns.The patient was resting comfortably in bed. 10/22 No new complaints. Patient ate most of his breakfast this morning. Continue wound care treatment. 10/23 Patient having dark liquid stools that are guaiac positive. We will discussed with Dr. Thomas as patient will benefit from eventual endoscopy. Monitor H&H. 10/24 Feeling little bit better today. Last couple guaiacs were negative for occult blood in the stool. Slow bleed which I suspect is gastritis seems to have stopped. Patient had surgical debridement of wound yesterday. Hemoglobin 8.2 today down from 8.6 yesterday. Transfuse if 8. 10/25 No overnight event or new complaints. Hemoglobin slightly better today. Wound VAC in place. 10/26 No complaints overnight events. Hemoglobin stable. Awaiting placement. Diarrhea seems to be thickening up a little but. 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 Barksdale #Tobacco abuse: #COPD (not on home O2): #Anemia, acute blood loss anemia on chronic 2/2 GI bleed: #GI bleed: likely gastritis given etoh, no abd pain; seems to be slow bleed. may have stopped as last 2 FOBT were neg P: -Dr. Sanches/wound care/Dr. Thomas -f/u with surgeon/gi for endoscopy for gi bleed -ppi bid -Follow-up with Dr. Barksdale regarding lung mass -f/u with cardio regarding CT findings Discharge diagnosis: Recurrent falls alcohol abuse severe protein calorie malnutrition decubitus Secondary discharge diagnosis: Lung mass tobacco abuse COPD anemia and GI bleed failure to thrive Time Spent with Patient Time attestation: Total time spent providing and/or coordinating discharge services: Time spent: Greater than 30 minutes EXAM Constitutional Vitals: Temp Pulse Resp BP Pulse Ox O2 Del Method 97.7 F 78 17 115/70 94 10/25/21 07:42 10/25/21 07:42 10/25/21 07:42 10/25/21 07:42 10/25/21 07:42 10/25/21 07:42 Discharge Data Data Completed and Pending Labs on day of discharge: Labs from last 24 hours 10/25/21 05:26 Hgb 8.4 L Hct 26.2 L Discharge Plan Patient/Caregiver Discharge Instructions Activity: increase activity as tolerated Diet: Regular Diet Activity Restrictions/Additional Instructions: Referral to see gastroenterology or general surgeon for endoscopy of GI bleed, slow bleed may have stopped. Follow-up with cardiology in 1 to 2 weeks for incidental findings on CT chest regarding coronary artery disease Prescriptions: New pantoprazole [Protonix] 40 mg tablet,delayed release (DR/EC) 40 mg PO BID Qty: 60 0RF amoxicillin-pot clavulanate 875-125 mg tablet 1 tab PO BID Qty: 10 0RF Continued albuterol sulfate 90 mcg/actuation HFA aerosol inhaler 2 puff INHALATION Q4H PRN (Reason: Shortness Of Breath) Spiriva Respimat 2.5 mcg/actuation mist 2 puff INHALATION QDAY [id number] [Centrum Silver] 1 tab PO QDAY folic acid 1 mg tablet 1 mg PO QDAY potassium chloride [Klor-Con M20] 20 mEq tablet,ER particles/crystals See Rx Instructions PO .COMPLEX Rx Instructions: PO; cholecalciferol (vitamin D3) 50 mcg (2,000 unit) capsule 50 mcg PO QDAY aspirin 81 mg tablet,delayed release (DR/EC) 81 mg PO QDAY Follow Up Plan Follow up with: Neri Thomas MD [Physician] - Ángel Sanches MD [Physician] - Homer Barksdale MD [Physician] - Patient Disposition: Xfer SNF Prognosis: Fair Rehab Potential: Undetermined I certify that the patient requires SNF services: Yes Overall status at discharge: patient is progressing back to baseline Discharge Orders: Discharge Order (Routine); Ordered 10/26/21 Ordered By: Devonte Jerry
[2021-10-25] MEDS: COLLAGENASE TOP OINT TUBE 30GM TOPICAL SCH (14:10)
[2021-10-26] MEDS: PIPERACILLIN SODIUM/TAZOBACTAM 3.375 GM in DEXTROSE 5% IN WATER 50 ML IV SCH (05:00)
[2021-10-26] MEDS: 0.9 % SODIUM CHLORIDE 10 ML SYRINGE IV SCH (05:00)
[2021-10-26 06:04] LABS: Hemoglobin 8.5 g/dL (13.7-17.5)
[2021-10-26] MEDS: MULTIVIT,THER IRON,CA,FA & MIN 1 TABLET PO SCH (07:29)
[2021-10-26] MEDS: FOLIC ACID 1 MG TABLET PO SCH (07:29)
[2021-10-26] MEDS: SUCRALFATE 1 GM/10 ML ORAL.SUSP PO SCH (07:29)
[2021-10-26] MEDS: PANTOPRAZOLE 40 MG VIAL IV SCH (07:29)
[2021-10-26] MEDS: THIAMINE 100 MG TABLET PO SCH (07:29)
--- NOTE | 2021-10-26 08:55 | Operative Note ---
DATE OF OPERATION: 10/23/2021 PREOPERATIVE DIAGNOSIS: Right and left gluteal pressure ulcerations in need of operative debridement. POSTOPERATIVE DIAGNOSIS: Right and left gluteal pressure ulcerations in need of operative debridement. PROCEDURE: 1. Debridement of right gluteal pressure ulceration. 2. Debridement of left gluteal pressure ulceration. SURGEON: Neri Thomas M.D. ANESTHESIA: Sedation. POSITIONING: INDICATIONS: The patient is a 65-year-old male who was found down some time ago, likely related to ongoing ethanol use and was found to have substantial pressure ulcerations related to that. He had been receiving care at an outside facility for some period of time when these wounds reached a point of needing a referral or necessitating a prompting referral for potential further evaluation and debridement and other ongoing wound care. I was asked to see him in consultation as an inpatient and examined the wounds with our wound care team and found him to have a substantial amount of necrotic debris, biofilm slough and other material over two unstageable bilateral gluteal wounds related to pressure ulceration. One was quite large and morphologically fairly deep on the left side and the other one appeared to be more shallow, but also unstageable on the right. Risks, benefits, potential complications, and alternative treatment options were all discussed with him at length. These include, but are not limited to bleeding, infection, cosmetic dissatisfaction, abnormal scarring, potential need for additional debridements, ongoing wound care and other issues, the option to not undergo surgery and other concerns. He gave full informed consent and wished to undergo the procedure. DESCRIPTION OF PROCEDURE: The patient was taken to the OR and placed in a prone position on the OR table by the entire OR team and placed under light IV sedation. After he was carefully positioned and all pressure sensitive areas were carefully padded to maximal degree by the entire OR team, we then prepped and draped the area of the bilateral gluteal wounds. Debridement began first at the much smaller wound on the right side. A necrotic eschar was lifted off and sharply debrided away as well as a fairly thick rind of underlying necrotic slough. These were all sharply debrided away to reveal fairly well vascularized underlying muscular tissue and we established this is a stage IV wound. There was no evidence of any bony or tendinous involvement. Cultures were obtained. The area was gently irrigated out and then pulse lavage was performed after maximal debridement was complete. A damp gauze dressing was then applied after making sure there was no active bleeding or hemorrhage. We then directed our efforts to the left-sided wound. Once again, a cake of necrotic and slough debris was sharply debrided away utilizing pickups and a scissor. Once this was all thoroughly debrided away then a heavy curette was brought in to further debride slough and biofilm. We were down to well vascularized tissues fairly quickly. The central aspect appeared to have a viable musculotendinous insertion. No bone was exposed. This was clearly a stage IV ulceration. I did not see any bony involvement or any clear definitive tenderness exposure. The area was pulse lavaged, irrigated out. Cultures were taken previously as well and then once again. Once this was completed, we laid a damp Kerlix into the wound. This completed the procedure, once we were assured that hemostasis was obtained. Additional sterile dressings were applied. The patient was allowed to awaken and transferred back to PACU in satisfactory condition. There were no apparent complications or issues. Sponge, needle and instrument counts were correct. Findings were discussed above. Estimated blood loss roughly 20-25 mL. Drains, none. BW:cem Job ID: [id number] Doc ID: [id number] Neri Thomas M.D.
--- NOTE | 2021-10-26 10:36 | Internal Med Progress Note ---
SUBJECTIVE Subjective Patient information: Note initiated : 10/26/21 at 10:35 am Service Date, if different from initiated Date: [] Patient: Jesse Augustin a 65 y/o M admitted on 10/20/21 for Wound Care. Chief Complaint: [] Principal diagnosis: Outside hospital transfer for wound mx Interval history: Chief complaint: Decubitus pressure ulcers requiring debridement History of present illness: Mr. Augustin is a 65 year old M with a past medical history significant for alcohol abuse, lung mass of unknown etiology, severe protein calorie malnutrition, failure to thrive, and COPD who was transferred from outside hospital for fu rther management and evaluation of his decubitus pressure ulcers. The case was discussed with Dr. Sanches who kindly agreed to accept the patient for surgical debridement. The patient lives alone, has no family or support group. He had a fall at home and was down for nearly 3 days. He states that he has dizzy spells from time to time. He denied any prodromal symptoms. Iit is believed the pressure ulcers may have been caused by the fact that he was down for 72 hours. At baseline he is quite malnourished and frail appearing as his weight is now 103 pounds. He states that he weighed 125 pounds last year. A friend eventually found him down and brought him to the outside ER. Of note, per my discussion with the outside ER physician, he is to be followed up with the emergency department aide for bronchoscopy and biopsy of his lung mass that may be malignant in etiology. At this point, there is been no significant goals of care discussion. The hospitalist service has been asked admit the patient for further management and evaluation of his numerous decubitus pressure ulcers that required de bridement. 10/21 I admitted him last night. He has no active complaints or concerns.The patient was resting comfortably in bed. 10/22 No new complaints. Patient ate most of his breakfast this morning. Continue wound care treatment. 10/23 Patient having dark liquid stools that are guaiac positive. We will discussed with Dr. Thomas as patient will benefit from eventual endoscopy. Monitor H&H. 10/24 Feeling little bit better today. Last couple guaiacs were negative for occult blood in the stool. Slow bleed which I suspect is gastritis seems to have stopped. Patient had surgical debridement of wound yesterday. Hemoglobin 8.2 today down from 8.6 yesterday. Transfuse if 8. 10/25 No overnight event or new complaints. Hemoglobin slightly better today. Wound VAC in place. 10/26 No complaints overnight events. Hemoglobin stable. Awaiting placement. Diarrhea seems to be thickening up a little but. Review of Systems: denies headache/fever/chills/nausea/vomiting/chest or abdominal p ain/cough/dyspnea. Otherwise see above. Constitutional Vitals: Vital Signs Temp Pulse Resp BP Pulse Ox O2 Del Method 98.4 F 72 17 109/74 98 10/26/21 06:48 10/26/21 06:48 10/26/21 06:48 10/26/21 06:48 10/26/21 06:48 10/26/21 06:48 Period Temp Pulse Resp BP Sys/[place] Pulse Ox O2 Del Method O2 Flow Rate Last 24 Hr 97.6 F-98.9 F 72-86 16-18 99-130/62-78 96-99 Room Air-Room Air Intake and Output 10/25/21 10/26/21 10/26/21 21:59 05:59 13:59 Intake Total 410 500 220 Output Total 350 475 400 Balance 60 25 -180 Weight 46.357 kg Intake & Output: Intake & Output 10/25/21 10/26/21 10/26/21 21:59 05:59 13:59 Intake Total 410 500 220 Output Total 350 475 400 Balance 60 25 -180 Weight 46.357 kg Intake: IV 50 100 Zosyn 3.375 gm In Dextrose 5% 50 100 in Water 50 ml @ 100 mls/hr IV Q6H [facility] Rx#:[id number] Oral 360 400 220 Output: Void Amount 350 475 400 Other: Meal Breakfast Percent of Meal Consumed 75% Feeding Ability Independent Urine Appearance Clear Urine Color Pale Stool Size Moderate Stool Color Green Black Stool Consistency Liquid # Voids 425 # Bowel Movements 1 Exam: General: Alert, Awake, No acute Distress, frail cachectic Eyes/N/T: EOMI, Head/Neck: neck supple, CV: RRR, No murmurs, Pulm: Clear b/l, no wheezing/rhonchi/rales Abd: soft, nontender, +BS x4 Ext: no clubbing/cyanosis/edema. pressure wounds lower thighs and left buttock in dressings Neuro: Alert, no focal deficits, moves all extremities, Skin: warm/dry OBJ DATA Labs CBC & Chem 7: 10/26/21 05:14 10/24/21 05:39 Labs: Abnormal Lab Results 10/26/21 10/25/21 10/24/21 05:14 05:26 05:39 WBC RBC Hgb 8.5 L 8.4 L Hct 26.0 L 26.2 L MCV RDW Plt Count Immature Gran % (Auto) Lymph % (Auto) Immature Gran # Absolute Neutrophils BUN 6 L Total Protein 5.7 L Albumin 3.0 L 10/24/21 05:39 WBC 12.0 H RBC 2.48 L Hgb 8.2 L Hct 25.1 L MCV 101.2 H RDW 14.6 H Plt Count 571 H Immature Gran % (Auto) 1.2 H Lymph % (Auto) 14.1 L Immature Gran # 0.14 H Absolute Neutrophils 9.24 H BUN Total Protein Albumin Meds: Medications Acetaminophen (Acetaminophen 325 Mg Tablet) 650 mg PO Q6HP PRN; Protocol PRN Reason: Per Pain Protocol/Fever > 101 Collagenase (Collagenase Top Oint Tube 30gm) 1 dose TOPICAL DAILY [facility] Last Admin: 10/25/21 14:10 Dose: 1 dose Folic Acid (Folic Acid 1 Mg Tablet) 1 mg PO DAILY [facility] Last Admin: 10/26/21 07:29 Dose: 1 mg Piperacillin Sod/Tazobactam (Sod 3.375 gm/ Dextrose) 50 mls @ 100 mls/hr IV Q6H [facility] Last Infusion: 10/26/21 05:32 Dose: Infused Iron Carb/Multivit/[place]/Folic Acid (Multivit,Ther Iron,Ca,Fa & Min 1 Tablet) 1 tab PO DAILY [facility] Last Admin: 10/26/21 07:29 Dose: 1 tab Ondansetron HCl (Ondansetron 4 Mg/2 Ml Vial) 4 mg IV Q6HP PRN PRN Reason: Nausea And Vomiting Oxycodone/Acetaminophen (Oxycodone/Apap 5/325mg Tablet) 1 tab PO Q4HP PRN; Protocol PRN Reason: Per Pain Protocol Pantoprazole Sodium (Pantoprazole 40 Mg Vial) 40 mg IV BIDAC [facility] Last Admin: 10/26/21 07:29 Dose: 40 mg Sodium Chloride (0.9 % Sodium Chloride 10 Ml Syringe) 10 ml IV Q8 [facility] Last Admin: 10/26/21 05:00 Dose: 10 ml Thiamine HCl (Thiamine 100 Mg Tablet) 100 mg PO DAILY [facility] Last Admin: 10/26/21 07:29 Dose: 100 mg A/P Narrative A/P Narrative: A: #Recurrent falls: 2/2 EtOH abuse + sarcopenia + hypovolemia/poor PO intake #Severe protein calorie malnutrition: Muscle &fat loss/poor functional status -Weight is down 20lbs, prealbumin low -The patient is high risk for redevelopment of wounds, or ongoing poor wound healing #Decubitus wounds, infection: 2/ being found down x 72h #EtOH withdrawal: Monitored at the outside hospital, now stable #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 Barksdale #Tobacco abuse: #COPD (not on home O2): #Anemia, acute blood loss anemia on chronic 2/2 GI bleed: #GI bleed: likely gastritis given etoh, no abd pain; seems to be slow bleed. may have stopped as last 2 FOBT were neg and hemoglobin stable P: -Dr. Sanches/wound care/Dr. Thomas -Dietary consult -PT/OT -monitor H&H, transfuse at 8, eventual endoscopy (discussed with surgeon) -ppi bid -abx -Smoking cessation counseling -Follow-up with Dr. Barksdale regarding mass -f/u with cardio regarding CT findings -ppx: SCD (hold chemical for GI bleed) DNR/DNI Time Spent With Patient Time: Total time spent is greater than 50% in coordination of care (as documented) at patient's floor/unit and/or counseling patient:
[2021-10-26] MEDS: COLLAGENASE TOP OINT TUBE 30GM TOPICAL SCH (12:57)
== END 2021-10-26 14:00 | DRG 570 ==
LOC: MEDSUR 18:06
PROVIDERS: ADMIT Student in an Organized Health Care Education/Training Program; ATTEND Internal Medicine